=== PATIENT | female | born 1955 | race Hispanic/Latino ===

== ENCOUNTER 2019-04-30 17:09 | Observation (INO) | payer OTHER, SELFPAY ==
--- OUTSIDE RECORDS SUMMARY | 2019-04-30 17:13 | XMS REPORT | Continuity of Care Document ---
:1955 Author Organization [employer] Care Team Providers Name Role Phone [employer] Unavailable Unavailable Problems Problem Status Onset Classification Date Comments Source Date Reported OPEN Active [facility] COMMUNICATED 7 Medical FEMUR FX Center FEMUR FX Active [place] [id number] [facility] UNSP FRACTURE OF Active [facility] UNSP FEMUR, INIT Medical ENCNTR Center Medications Medication Details Route Status Patient Ordering Order Source Instructions Provider Date gabapentin 300 MG 300 mg=1 cap, Active [facility] Oral Capsule PO, Q8Hnow, # 90 2017 Medical cap, 0 Center Refill(s), Pharmacy: [facility] [id number] Ergocalciferol 50,000 Active [facility] [address] UNT Oral IntlUnit=1 cap, 2017 Medical Capsule PO, Q7D, # 5 Center cap, 0 Refill(s), Pharmacy: [facility] [id number] enoxaparin 30 30 mg=0.3 mL, Active [facility] mg/0.3 mL SUB-Q, [id number], 2017 Medical subcutaneous X 17 day, # 34 Center solution syr, 0 Refill(s), Pharmacy: [facility] [id number] Calcium Carbonate 1 tab, CHEW, Active [place] 1250 MG / BID-Meals, # 60 2017 Medical Cholecalciferol tab, 0 Center 400 UNT Chewable Refill(s), Tablet Pharmacy: [facility] [address] acetaminophen 325 650 mg=2 tab, Active [place] mg oral tablet PO, Q6H, 0 2017 Medical Refill(s) Center tramadol 100 mg=2 tab, Active [place] hydrochloride 50 PO, Q6Hnow, X 7 2017 Medical MG Oral Tablet day, # 56 tab, 0 Center Refill(s) methocarbamol 500 1,000 mg=2 tab, Active [place] mg oral tablet PO, Q8H, PRN 2017 Medical Muscle Spasms, X Center 5 day, # 30 tab, 0 Refill(s), Pharmacy: [facility] [id number] Metformin 500 mg=1 tab, Active [place] hydrochloride 500 PO, TID, # 90 2017 Medical MG Oral Tablet tab, 0 Center Refill(s), Pharmacy: [facility] [id number] insulin isophane 15 unit, SUB-Q, Active Steven (NPH) 100 BID, # 3 mL, 0 2017 Medical units/mL human Refill(s), Center recombinant Pharmacy: subcutaneous [facility] [id number] Nystatin 100 1 appl, Route: Inactive [place] UNT/MG Topical TOP, QSHIFT, 2017 Medical Powder Drug form: PWDR, Center Start date: 08/18/17 0:00:00 ENVIRONMENTAL SERVICES SUPERVISOR, Duration: 30 day, Stop date: 09/16/17 16:00:00 CSTNotes: (Same as:Mycostatin, Nilstat) For external use only. insulin, isophane 15 unit, 0.15 No Longer [place] mL, Route: Active 2016 Medical SUB-Q, Drug Center form: INJ, BID, Dosing Weight 104.545, kg, Start date: 08/17/17 9:00:00 ENVIRONMENTAL SERVICES SUPERVISOR, Duration: 30 day, Stop date: 09/15/17 17:00:00 CSTNotes: Roll in palms of hands gently; Do not shake vigorously. (Same as: Humulin N) Do not hold insulin without contacting prescriber WASTE: F/P - Black; E - Jeeves Trash Bin Stable for 28 days at room temperature Expires in days from Da te Metformin 500 mg, 1 tab, No Longer [place] hydrochloride 500 Route: PO, Drug Active 2016 Medical MG Oral Tablet form: TAB, TID, Center Dosing Weight 104.545, kg, Start date: 08/17/17 9:00:00 ENVIRONMENTAL SERVICES SUPERVISOR, Duration: 30 day, Stop date: 09/15/17 17:00:00 CSTNotes: (Same as: Glucophage) Take with meal Insulin Glargine 15 unit, Route: Inactive [place] 100 UNT/ML SUB-Q, ONCE, 2017 Medical Injectable Dosing Weight Center Solution 104.545, kg, Start date: 08/17/17 6:42:00 ENVIRONMENTAL SERVICES SUPERVISOR, Stop date: 08/17/17 6:42:00 ENVIRONMENTAL SERVICES SUPERVISOR Ergocalciferol 50,000 IntlUnit, No Longer [place] [address] UNT Oral 1 cap, Route: Active 2017 Medical Capsule PO, Drug form: Center CAP, Q7D, Dosing Weight 104.545, kg, Start date: 08/16/17 15:00:00 ENVIRONMENTAL SERVICES SUPERVISOR, Duration: 30 day, Stop date: 09/13/17 9:00:00 CSTNotes: (Same as: Vitamin D) "Do Not Crush" sennosides, RETIREMENT 17.2 mg, 2 tab, No Longer [place] Route: PO, Drug Active 2016 Medical Form: TAB, [place] Dosing Weight 106.818, kg, Bedtime, Start date: 08/15/17 21:00:00 ENVIRONMENTAL SERVICES SUPERVISOR, Duration: 30 day, Stop date: 09/13/17 21:00:00 CSTNotes: (Same as: Senokot) Insulin Glargine 5 unit, 0.05 mL, No Longer [place] 100 UNT/ML Route: SUB-Q, Active 2016 Medical Injectable Drug form: MONICA [place] Solution [Lantus] Bedtime, Dosing Weight 104.545, kg, Start date: 08/15/17 21:00:00 ENVIRONMENTAL SERVICES SUPERVISOR, Duration: 30 day, Stop date: 09/13/17 21:00:00 CSTNotes: Same as: Lantus) Do not hold insulin without contacting prescriber WASTE: F/P - Black; E - Municipal Trash Bin ondansetron Route: IV, Drug Inactive [place] (ANES) form: INJ, ONCE, 2016 Medical Stop date: [place] 08/15/17 17:47:00 ENVIRONMENTAL SERVICES SUPERVISOR phenylephrine Route: IV, Drug Inactive [facility] (ANES) form: INJ, ONCE, 2016 Medical Stop date: [place] 08/15/17 17:37:00 ENVIRONMENTAL SERVICES SUPERVISOR Naloxone 0.4 mg, Route: Inactive [place] IVP, Q2MIN, 2016 Medical Dosing Weight [place] 104.545, kg, PRN Narcotic Reversal, Start date: 08/15/17 17:27:00 ENVIRONMENTAL SERVICES SUPERVISOR, Duration: 8 doses or times, Stop date: Limited # of times Hydromorphone 0.5 mg, Route: Inactive [facility] IVP, Q5Min, 2017 Medical Dosing Weight Center 104.545, kg, PRN Pain Score 7-10, Start date: 08/15/17 17:27:00 ENVIRONMENTAL SERVICES SUPERVISOR, Duration: 4 doses or times, Stop date: Limited # of times Flumazenil 0.2 mg, Route: Inactive [facility] IVP, PRN, Dosing 2017 Medical Weight 104.545, Center kg, PRN Benzodiazepine Reversal, Initial dose, Start date: 08/15/17 17:27:00 ENVIRONMENTAL SERVICES SUPERVISOR, Duration: 30 day, Stop date: 09/14/17 17:26:00 ENVIRONMENTAL SERVICES SUPERVISOR Fentanyl 25 microgram, Inactive [facility] Route: IVP, 2017 Medical Q5Min, Dosing Center Weight 104.545, kg, PRN Pain Score 7-10, Priority: Routine, Start date: 08/15/17 17:27:00 ENVIRONMENTAL SERVICES SUPERVISOR, Duration: 2 doses or times, Stop date: Limited # of times Ondansetron 4 mg, Route: Inactive [facility] IVP, ONCE, 2017 Medical Dosing Weight Center 104.545, kg, PRN Nausea & Vomiting, Start date: 08/15/17 17:27:00 ENVIRONMENTAL SERVICES SUPERVISOR Acetaminophen 1,000 mg, Route: Inactive [facility] PO, Drug form: 2017 Medical TAB, ONCE, Center Dosing Weight 104.545, kg, PRN Pain Score 1-3, Start date: 08/15/17 17:27:00 ENVIRONMENTAL SERVICES SUPERVISOR, Duration: 1 doses or times, Stop date: Limited # of times fentaNYL (ANES) Route: IV, Drug Inactive [facility] form: INJ, ONCE, 2016 Medical Stop date: [place] 08/15/17 15:46:00 ENVIRONMENTAL SERVICES SUPERVISOR rocuronium (ANES) Route: IV, Drug Inactive [facility] form: INJ, ONCE, 2016 Medical Stop date: [place] 08/15/17 15:46:00 ENVIRONMENTAL SERVICES SUPERVISOR phenylephrine Route: IV, Drug Inactive [place] (ANES) form: INJ, ONCE, 2016 Medical Stop date: [place] 08/15/17 15:41:00 ENVIRONMENTAL SERVICES SUPERVISOR ePHEDrine (ANES) Route: IV, Drug Inactive [place] form: INJ, ONCE, 2016 Medical Stop date: [place] 08/15/17 15:36:00 ENVIRONMENTAL SERVICES SUPERVISOR phenylephrine Route: IV, Drug Inactive [place] (ANES) form: INJ, ONCE, 2016 Medical Stop date: [place] 08/15/17 15:21:00 ENVIRONMENTAL SERVICES SUPERVISOR ceFAZolin (ANES) Route: IV, Drug Inactive [place] form: INJ, ONCE, 2016 Medical Stop date: [place] 08/15/17 15:16:00 ENVIRONMENTAL SERVICES SUPERVISOR fentaNYL (ANES) Route: IV, Drug Inactive [place] form: INJ, ONCE, 2016 Medical Stop date: [place] 08/15/17 15:16:00 ENVIRONMENTAL SERVICES SUPERVISOR lidocaine (ANES) Route: IV, Drug Inactive [place] form: INJ, ONCE, 2016 Medical Stop date: [place] 08/15/17 15:16:00 ENVIRONMENTAL SERVICES SUPERVISOR propofol (ANES) Route: IV, Drug Inactive [place] form: INJ, ONCE, 2016 Medical Stop date: [place] 08/15/17 15:16:00 ENVIRONMENTAL SERVICES SUPERVISOR rocuronium (ANES) Route: IV, Drug Inactive [place] form: INJ, ONCE, 2016 Medical Stop date: [place] 08/15/17 15:16:00 ENVIRONMENTAL SERVICES SUPERVISOR LR 1000 mL INJ Route: IV, Total Inactive [place] (ANES) Volume: 1,000, 2016 Medical Start date: [place] 08/15/17 14:50:00 ENVIRONMENTAL SERVICES SUPERVISOR, Stop date: 08/15/17 15:50:00 ENVIRONMENTAL SERVICES SUPERVISOR midazolam (ANES) Route: IV, Drug Inactive [place] form: SOLN, 2017 Medical ONCE, Stop date: [place] 08/15/17 14:50:00 ENVIRONMENTAL SERVICES SUPERVISOR LR 1000 mL INJ Route: IV, Total Inactive [place] (ANES) Volume: 1,000, 2016 Medical Start date: [place] 08/15/17 14:17:00 ENVIRONMENTAL SERVICES SUPERVISOR, Stop date: 08/15/17 15:17:00 ENVIRONMENTAL SERVICES SUPERVISOR Enoxaparin 30 mg, 0.3 mL, No Longer [place] Route: SUB-Q, Active 2016 Medical Drug form: INJ, Center [id number], Dosing Weight 106.818, kg, Consider for obese patients, Start date: 08/15/17 13:00:00 ENVIRONMENTAL SERVICES SUPERVISOR, Duration: 30 day, Stop date: 09/14/17 1:00:00 CSTNotes: (Same as: Lovenox) Acetaminophen 650 mg, 2 tab, No Longer [place] Route: PO, Drug Active 2016 Medical form: TAB, Q6H, Center Dosing Weight 104.545, kg, Start date: 08/15/17 12:00:00 ENVIRONMENTAL SERVICES SUPERVISOR, Duration: 30 day, Stop date: 09/14/17 6:00:00 CSTNotes: Do not exceed 4 gm/day. (Same as: Tylenol) Docusate 100 mg, 1 cap, No Longer [place] Route: PO, Drug Active 2016 Medical form: CAP, BID, Center Dosing Weight 106.818, kg, Start date: 08/15/17 9:00:00 ENVIRONMENTAL SERVICES SUPERVISOR, Duration: 30 day, Stop date: 09/13/17 17:00:00 CSTNotes: (Same as: Colace) (Do Not Crush) Calcium Carbonate 1 tab, Route: No Longer [place] 1250 MG / CHEW, Drug Form: Active 2017 Medical Cholecalciferol CHEWTAB, Dosing Center 400 UNT Chewable Weight 106.818, Tablet kg, BID-Meals, Start date: 08/15/17 8:00:00 ENVIRONMENTAL SERVICES SUPERVISOR, Duration: 30 day, Stop date: 09/13/17 17:00:00 CSTNotes: (calcium carbonate-vit D 500mg-400unit chew TAB) Same as: Oscal 500+D sodium chloride 1,000 mL, Rate: No Longer [place] 0.9% 1000 ml INJ 75 ml/hr, Infuse Active 2016 Medical 1,000 mL over: 13.3 hr, Center Route: IV, Dosing Weight 106.818 kg, Total Volume: 1,000, Start date: 08/15/17 3:39:00 ENVIRONMENTAL SERVICES SUPERVISOR, Duration: 30 day, Stop date: 09/14/17 3:38:00 ENVIRONMENTAL SERVICES SUPERVISOR gabapentin 300 mg, 1 cap, No Longer [place] Route: PO, Drug Active 2016 Medical form: CAP, Center Q8Hnow, Dosing Weight 106.818, kg, Start date: 08/15/17 0:00:00 ENVIRONMENTAL SERVICES SUPERVISOR, Duration: 30 day, Stop date: 09/13/17 16:00:00 CSTNotes: (Same as: Neurontin) Tramadol 100 mg, 2 tab, No Longer [place] Route: PO, Drug Active 2016 Medical form: TAB, Center Q6Hnow, Dosing Weight 106.818, kg, Start date: 08/15/17 0:00:00 ENVIRONMENTAL SERVICES SUPERVISOR, Duration: 30 day, Stop date: 09/13/17 18:00:00 CSTNotes: Not to exceed 400mg/day. (Same As: Ultram) Acetaminophen 1,000 mg, 2 tab, Inactive [place] Route: PO, Drug 2016 Medical form: TAB, Center Q6Hnow, Dosing Weight 106.818, kg, Start date: 08/15/17 0:00:00 ENVIRONMENTAL SERVICES SUPERVISOR, Duration: 30 day, Stop date: 09/13/17 18:00:00 CSTNotes: Max acetaminophen 4000 mg/day (4 gm/day). (Same as: Tylenol Extra Strength) Enoxaparin 40 mg, 0.4 mL, Inactive [place] Route: SUB-Q, 2016 Medical Drug form: INJ, Center [id number], Dosing Weight 106.818, kg, Consider for obese patients, Start date: 08/15/17 0:00:00 ENVIRONMENTAL SERVICES SUPERVISOR, Duration: 30 day, Stop date: 09/13/17 12:00:00 CSTNotes: (Same as: Lovenox) Ancef + water for 2 gm, Route: No Longer [place] INJection, IVPB, ABXQ8H, Active 2016 Medical sterile 20 mL Dosing Weight Center 106.818, kg, Start date: 08/15/17 0:00:00 ENVIRONMENTAL SERVICES SUPERVISOR, Stop date: 08/19/17 19:00:00 ENVIRONMENTAL SERVICES SUPERVISOR, ABX Indication: Surgical ProphylaxisNotes : (Same As: Ancef, Kefzol) MEDICATION WASTE Product Size: 1000 mg Product Wasted: ___ mg Glucagon 1 mg, Route: IM, No Longer [place] Drug form: Active 2016 Medical PDR/INJ, PRN, Center Dosing Weight 106.818, kg, PRN Blood Glucose Results, Start date: 08/14/17 23:28:00 ENVIRONMENTAL SERVICES SUPERVISOR, Duration: 30 day, Stop date: 09/13/17 23:27:00 ENVIRONMENTAL SERVICES SUPERVISOR Dextrose 50% 25 gm, 50 mL, No Longer [place] Syringe Route: IVP, Drug Active 2016 Medical Form: INJ, Center Dosing Weight 106.818, kg, PRN, PRN Blood Glucose Results, Start date: 08/14/17 23:28:00 ENVIRONMENTAL SERVICES SUPERVISOR, Duration: 30 day, Stop date: 09/13/17 23:27:00 ENVIRONMENTAL SERVICES SUPERVISOR Insulin Lispro 5 unit, 0.05 mL, No Longer [place] Route: SUB-Q, Active 2016 Medical Drug form: SOLN, Center Sliding Scale, Dosing Weight 106.818, kg, PRN Blood Glucose Results, Start date: 08/14/17 23:28:00 ENVIRONMENTAL SERVICES SUPERVISOR, Duration: 30 day, Stop date: 09/13/17 23:27:00 CSTNotes: (Same as: Humalog ) Roll in palms of hands gently; Do not shake `vigorously. "Single Patient Use Only " (Restricted to patients requiring a dose > 60 units) WASTE: F/P - Black; E - Municipal Trash Bin Stable for 28 days at room temperature. Expires in days from [place] Methocarbamol 1,000 mg, 2 tab, No Longer [place] Route: PO, Drug Active 2016 Medical form: TAB, Q8H, Center Dosing Weight 106.818, kg, PRN Muscle Spasms, Start date: 08/14/17 23:26:00 ENVIRONMENTAL SERVICES SUPERVISOR, Duration: 30 day, Stop date: 09/13/17 23:25:00 CSTNotes: (Same as:Robaxin) Ondansetron 4 mg, 2 mL, No Longer [facility] Route: IVP, Drug Active 2016 Medical form: INJ, Q8H, Center Dosing Weight 106.818, kg, PRN Nausea & Vomiting, Start date: 08/14/17 23:26:00 ENVIRONMENTAL SERVICES SUPERVISOR, Duration: 30 day, Stop date: 09/13/17 23:25:00 CSTNotes: (Same as: Zofran) MEDICATION WASTE Product Size: 4 mg Product Wasted: ___ mg Oxycodone 10 mg, 2 tab, No Longer [place] Hydrochloride 5 Route: PO, Drug Active 2016 Medical MG Oral Tablet form: TAB, Q4H, Center Dosing Weight 106.818, kg, PRN Pain Score 7-10, Start date: 08/14/17 23:26:00 ENVIRONMENTAL SERVICES SUPERVISOR, Duration: 30 day, Stop date: 09/13/17 23:25:00 CSTNotes: (Same as: Roxicodone) Saline Flush 0.9% 10 ml, Route: No Longer [place] IVP, Drug Form: Active 2017 Medical INJ, Dosing Center Weight 106.818, kg, PRN, PRN Line Flush, Start date: 08/14/17 23:26:00 ENVIRONMENTAL SERVICES SUPERVISOR, Duration: 30 day, Stop date: 09/13/17 23:25:00 CSTNotes: (Same as: BD Posiflush) sodium chloride 1,000 mL, Rate: No Longer [place] 0.45% 1000 ml INJ 125 ml/hr, Active 2016 Medical 1,000 mL Infuse over: 8 Center hr, Route: IV, Dosing Weight 106.818 kg, Total Volume: 1,000, Start date: 08/14/17 23:26:00 ENVIRONMENTAL SERVICES SUPERVISOR, Duration: 30 day, Stop date: 09/13/17 23:25:00 ENVIRONMENTAL SERVICES SUPERVISOR Morphine 4 mg, Route: Inactive [place] IVP, ONCE, 2016 Medical Dosing Weight Center 106.818, kg, Priority: STAT, Start date: 08/14/17 21:34:00 ENVIRONMENTAL SERVICES SUPERVISOR, Stop date: 08/14/17 21:34:00 ENVIRONMENTAL SERVICES SUPERVISOR Ancef 2 gm, Route: Inactive [place] IVPB, ONCE, 2016 Medical Dosing Weight Center 106.818, kg, Priority: STAT, Start date: 08/14/17 19:20:00 ENVIRONMENTAL SERVICES SUPERVISOR, Duration: 1 doses or times, Stop date: 08/14/17 19:20:00 ENVIRONMENTAL SERVICES SUPERVISOR, ABX Indication: Open Wound Prophylaxis Morphine 4 mg, Route: Inactive [place] IVP, ONCE, 2016 Medical Dosing Weight Center 106.818, kg, Priority: STAT, Start date: 08/14/17 19:19:00 ENVIRONMENTAL SERVICES SUPERVISOR, Stop date: 08/14/17 19:19:00 ENVIRONMENTAL SERVICES SUPERVISOR Ondansetron 4 mg, Route: Inactive [place] IVP, Drug form: 2017 Medical INJ, ONCE, Center Dosing Weight 106.818, kg, Priority: STAT, Start date: 08/14/17 19:19:00 ENVIRONMENTAL SERVICES SUPERVISOR, Stop date: 08/14/17 19:19:00 ENVIRONMENTAL SERVICES SUPERVISOR Allergies, Adverse Reactions, Alerts Substance Category Reaction Severity Reaction Status Date Comments Source type Reported penicillins Assertion Drug Active [facility] Immunizations No Data Provided for This Section Results Order Name Results Value Reference Date Interpretation Comments Source Range CHEM PANEL eGFR 109 08/17 Result Comment: The Medical eGFR is Center calculated using the CKD-EPI formula. In most young, healthy individuals the eGFR will be >90 mL/min/1.73m2 . The eGFR declines with age. An eGFR of 60-89 may be normal in some populations, particularly the elderly, for whom the CKD-EPI formula has not been extensively validated. Use of the eGFR is not recommended in the following populations:< br/>
Jinny viduals with unstable creatinine concentration s, including patients and those with serious co-morbid conditions.<b r/>
Patie nts with extremes in muscle mass or diet.

The data above are obtained from the National Kidney Disease Education Program (NKDEP) which additionally recommends that when the eGFR is used in patients with extremes of body mass index for purposes of drug dosing, the eGFR should be multiplied by the estimated BMI. CHEM PANEL BUN 9 7 - 22 08/17 [facility] [address] [place] [address] CHEM PANEL Potassium 3.3 3.5 - 5.1 08/17 [facility] CHEM PANEL Glucose Lvl 275 70 - 99 08/[address] CHEM PANEL Sodium Lvl 138 135 - 145 08/[address] CHEM PANEL Creatinine 0.45 0.50 - 08/17 [facility] Lvl 1.40 [facility] CHEM PANEL Calcium Lvl 8.6 8.5 - 10.5 08/17 [facility]2016 [facility] CHEM PANEL CO2 30 24 - 32 08/[address] CHEM PANEL Chloride Lvl 102 95 - 109 08/[address] CHEM PANEL AGAP 9.3 10.0 - 08/17 [place] 20.0 [facility] HEMATOLOGY Basophils 0.6 0.0 - 1.0 08/[address] HEMATOLOGY Monocytes # 0.5 0.0 - 0.8 08/17 [facility] HEMATOLOGY Lymphocytes 1.9 1.0 - 5.5 11 [place] # /2017 [facility] HEMATOLOGY Eosinophils 0.4 0.0 - 0.5 08/17 [place] # /2017 [facility] HEMATOLOGY Segs-Bands # 5.4 1.5 - 8.1 08/17 [facility] HEMATOLOGY Eosinophils 4.5 0.0 - 4.0 08/17 [facility] HEMATOLOGY Segs 65.7 45.0 - 08/17 [place] 75.0 [facility] HEMATOLOGY Lymphocytes 23.1 20.0 - 08/17 [place] 40.0 [facility] HEMATOLOGY Monocytes 6.1 2.0 - 12.0 08/17 [facility] HEMATOLOGY RDW 14.3 11.5 - 08/17 [place] 14.5 [facility] HEMATOLOGY Platelet 191 133 - 450 08/17 [facility] HEMATOLOGY MPV 7.6 7.4 - 10.4 08/17 [facility] HEMATOLOGY MCHC 34.2 32.0 - 08/17 [place] 36.0 [facility] HEMATOLOGY MCH 28.5 27.0 - 08/17 [place] 31.0 [facility] HEMATOLOGY MCV 83.3 80.0 - 08/17 [place] 98.0 [facility] HEMATOLOGY Hct 22.3 36.0 - 08/17 [place] 48.0 [facility] HEMATOLOGY WBC 8.2 3.7 - 10.4 08/17 [facility] HEMATOLOGY Hgb 7.6 12.0 - 08/17 [place] 16.0 [facility] HEMATOLOGY RBC 2.68 4.20 - 08/17 [place] 5.40 [facility] CHEM PANEL eGFR 107 08/16 [facility] Comment: The Medical eGFR is Center calculated using the CKD-EPI formula. In most young, healthy individuals the eGFR will be >90 mL/min/1.73m2 . The eGFR declines with age. An eGFR of 60-89 may be normal in some populations, particularly the elderly, for whom the CKD-EPI formula has not been extensively validated. Use of the eGFR is not recommended in the following populations:< br/>
Jinny viduals with unstable creatinine concentration s, including patients and those with serious co-morbid conditions.<b r/>
Patie nts with extremes in muscle mass or diet.

The data above are obtained from the National Kidney Disease Education Program (NKDEP) which additionally recommends that when the eGFR is used in patients with extremes of body mass index for purposes of drug dosing, the eGFR should be multiplied by the estimated BMI. CHEM PANEL Globulin 3.5 2.7 - 4.2 08/16 [facility] CHEM PANEL A/G Ratio 0.7 0.7 - 1.6 08/[address] CHEM PANEL BUN 11 7 - 22 08/[address] CHEM PANEL Glucose Lvl 276 70 - 99 08/[address] CHEM PANEL Creatinine 0.47 0.50 - 08/16 [facility] Lvl 1.40 [facility] CHEM PANEL Alk Phos 110 39 - 136 08/[address] CHEM PANEL Bili Total 0.2 0.2 - 1.3 08/[address] CHEM PANEL ALT 34 0 - 65 08/[address] CHEM PANEL AST 23 0 - 37 08/[address] CHEM PANEL Albumin Lvl 2.4 3.5 - 5.0 08/[address] CHEM PANEL Total 5.9 6.4 - 8.4 08/16 [facility] Protein [facility] CHEM PANEL Calcium Lvl 8.1 8.5 - 10.5 08/[address] CHEM PANEL CO2 29 24 - 32 08/[address] CHEM PANEL Chloride Lvl 104 95 - 109 08/[address] CHEM PANEL Potassium 3.9 3.5 - 5.1 08/16 [facility] [place] [facility] CHEM PANEL Sodium Lvl 137 135 - 145 08/[address] CHEM PANEL B/C Ratio 23 6 - 25 08/[address] CHEM PANEL AGAP 7.9 10.0 - 08/16 [place] 20.0 [facility] HEMATOLOGY Eosinophils 0.2 0.0 - 0.5 08/16 [facility] # /2016 [facility] HEMATOLOGY Segs-Bands # 6.3 1.5 - 8.1 08/16 [facility] HEMATOLOGY Lymphocytes 1.3 1.0 - 5.5 11 [place] # /2016 [facility] HEMATOLOGY Monocytes # 0.6 0.0 - 0.8 08/16 [facility] HEMATOLOGY Eosinophils 2.2 0.0 - 4.0 08/16 [facility] HEMATOLOGY Basophils 0.5 0.0 - 1.0 08/16 [facility] HEMATOLOGY Segs 74.5 45.0 - 08/16 [place] 75.0 [facility] HEMATOLOGY Monocytes 7.0 2.0 - 12.0 08/16 [facility] HEMATOLOGY Lymphocytes 15.8 20.0 - 08/16 [place] 40.0 [facility] HEMATOLOGY Hgb 8.5 12.0 - 08/16 [place] 16.0 [facility] HEMATOLOGY RBC 2.99 4.20 - 08/16 [place] 5.40 [facility] HEMATOLOGY Platelet 199 133 - 450 08/16 [facility] HEMATOLOGY RDW 14.2 11.5 - 08/16 [place] 14.5 [facility] HEMATOLOGY MPV 7.3 7.4 - 10.4 08/16 [facility] HEMATOLOGY MCV 83.3 80.0 - 08/16 [place] 98.0 [facility] HEMATOLOGY Hct 24.9 36.0 - 08/16 [place] 48.0 [facility] HEMATOLOGY MCH 28.3 27.0 - 08/16 [place] 31.0 [facility] HEMATOLOGY MCHC 34.0 32.0 - 08/16 36.0 [facility] HEMATOLOGY WBC 8.5 3.7 - 10.4 08/16 [facility] CHEM PANEL Vitamin D, 10.3 30.0 - 08/15 [facility] 25-OH, Total 100.0 [facility] PARATHYROID PTH Intact 34.2 11.1 - 08/15 [facility] PROFILE 79.5 [facility] CHEM PANEL eGFR 108 08/15 [facility] Comment: The Medical eGFR is Center calculated using the CKD-EPI formula. In most young, healthy individuals the eGFR will be >90 mL/min/1.73m2 . The eGFR declines with age. An eGFR of 60-89 may be normal in some populations, particularly the elderly, for whom the CKD-EPI formula has not been extensively validated. Use of the eGFR is not recommended in the following populations:< br/>
Jinny viduals with unstable creatinine concentration s, including patients and those with serious co-morbid conditions.<b r/>
Patie nts with extremes in muscle mass or diet.

The data above are obtained from the National Kidney Disease Education Program (NKDEP) which additionally recommends that when the eGFR is used in patients with extremes of body mass index for purposes of drug dosing, the eGFR should be multiplied by the estimated BMI. CHEM PANEL Sodium Lvl 137 135 - 145 08/[address] CHEM PANEL Potassium 3.4 3.5 - 5.1 08/15 [facility] [place] [address] CHEM PANEL CO2 27 24 - 32 08/[address] CHEM PANEL Calcium Lvl 8.2 8.5 - 10.5 08/[address] CHEM PANEL Glucose Lvl 346 70 - 99 08/[address] CHEM PANEL Chloride Lvl 101 95 - 109 08/[address] CHEM PANEL BUN 13 7 - 22 08/[address] CHEM PANEL Creatinine 0.46 0.50 - 08/15 [facility] Lvl 1.40 [facility] CHEM PANEL AGAP 12.4 10.0 - 08/15 [place] 20.0 [facility] HEMATOLOGY Eosinophils 0.1 0.0 - 0.5 08/15 [facility] # /2017 [facility] HEMATOLOGY Monocytes # 0.7 0.0 - 0.8 08/[address] HEMATOLOGY Lymphocytes 2.3 1.0 - 5.5 08/15 [facility] # /[address] [place] [address] HEMATOLOGY Segs 61.1 45.0 - 08/15 [place] 75.0 [facility] HEMATOLOGY Segs-Bands # 4.9 1.5 - 8.1 08/[address] HEMATOLOGY Basophils 0.6 0.0 - 1.0 08/[address] HEMATOLOGY Eosinophils 1.0 0.0 - 4.0 08/[address] HEMATOLOGY Lymphocytes 29.1 20.0 - 08/15 [place] 40.0 [facility] HEMATOLOGY Monocytes 8.2 2.0 - 12.0 08/[address] HEMATOLOGY PT 15.8 12.0 - 08/15 14.7 /2016 [facility] HEMATOLOGY PTT 41.4 22.9 - 08/15 35.8 /2016 [facility] HEMATOLOGY INR 1.25 0.85 - 08/15 [place] 1.17 /2016 [facility] HEMATOLOGY MPV 7.3 7.4 - 10.4 08/15 [facility] HEMATOLOGY MCH 28.0 27.0 - 08/15 [place] 31.0 [facility] HEMATOLOGY MCHC 33.8 32.0 - 11 [place] 36.0 [facility] HEMATOLOGY Platelet 246 133 - 450 08/15 [facility] HEMATOLOGY MCV 83.1 80.0 - 08/15 [facility] 98.0 [facility] HEMATOLOGY RDW 14.2 11.5 - 08/15 [facility] 14.5 [facility] HEMATOLOGY WBC 8.0 3.7 - 10.4 08/15 [facility] HEMATOLOGY RBC 3.49 4.20 - 08/15 [facility] 5.40 [facility] HEMATOLOGY Hct 29.0 36.0 - 08/15 [place] 48.0 [facility] HEMATOLOGY Hgb 9.8 12.0 - 08/15 [place] 16.0 [facility] SPECIAL Hgb A1C 12.7 <=5.6 % 08/15 [facility] CHEMISTRY [facility] CHEM PANEL Lactic Acid 1.1 0.5 - 2.2 08/15 [facility] WB [facility] BLOOD BANK Antibody Negative 08/15 [facility] RESULTS Scrn (08/14/17 7:50 PM) [facility] BLOOD BANK ABO/Rh O NEG 08/15 [facility] RESULTS [facility] IMMUNOLOGY CDC HIV 4th Negative Negative 08/15 [facility] GEN *NA* /2016 [facility] (08/14/17 7:50 PM) [place] HEMATOLOGY G-value 15.9 5.0 - 11.6 08/15 [facility] HEMATOLOGY R-time Rapid 0.6 0.4 - 0.7 08/15 [facility] HEMATOLOGY [place] 0.5 08/15 [facility] HEMATOLOGY ACT (TEG) 105 86 - 118 08/15 [facility] HEMATOLOGY Max 76 52 - 71 08/15 [facility] HEMATOLOGY K-time Rapid 0.8 0.6 - 2.3 08/[address] HEMATOLOGY Angle Rapid 81 64 - 80 08/[address] HEMATOLOGY Estimated % 1.3 0.0 - 7.5 08/15 [facility] HEMATOLOGY Basophils # 0.1 0.0 - 0.2 08/[address] Pathology Reports No Data Provided for This Section Diagnostic Reports Report Value Date Source Femur series DX EXAM: XR LEFT FEMUR 2 VIEWS 08/15/2017 [facility] DATE: 08/15/2017 2:45 PM [facility] INDICATION: Fracture - post-op COMPARISON: X-ray knee 08/14/2017. TECHNIQUE: AP and lateral radiographs of the femur FINDINGS:Patient is status post intramedullary nail with interlocking screws for a comminuted fracture of the distal femoral diaphyses and metaphyses. Satisfactory alignment without evidence of periimplant fracture. Soft tissue swelling is present. IMPRESSION: Status post intramedullary nail with satisfactory alignment and no evidence of hardware complication. Chest 1view DX EXAM: XR CHEST 1 VIEW 08/15/2017 [facility] DATE: 08/15/2017 Center INDICATION: Respiratory distress - dyspnea . Comparison is made with yesterday FINDINGS: The heart is not enlarged. Costophrenic sulci are sharp without effusion. The lungs are clear. IMPRESSION: No significant interval change when compared to prior radiograph. Femur wo contrast CT EXAM: CT LEFT FEMUR WITHOUT CONTRAST, WITH 3-D 2016 [facility] DATE: 08/14/2017 10:08 PM [facility] INDICATION: - please include L knee and tibia COMPARISON: Radiographs from 08/14/2017. TECHNIQUE: Volumetric acquisition of the left femur without contrast. Axial, sagittal and coronal reconstructions. 3-D volume rendered images. IV contrast: None. DLP: 905 mGy-cm UT SECTION: ER FINDINGS: Comminuted left femoral distal metadiaphysis fracture is seen with posterior displacement of one and a half shaft width and medial displacement of about half shaft width, about 3.5 cm overriding at the primary fracture line. Also, the distal fragment appears mildly internally rotated. Significant comminution is noted at the distal metaphysis, with multiple displaced fracture fragments, largest anterom edially. There is intra-articular extension of the fracture into the knee joint, with a nondisplaced sagittal split fracture line extending into the lateral portion of the medial femoral condyle. A seco ndary fracture line extends into the posterior aspect of the lateral femoral condyle, but does not extend to the articular surface. Tricompartmental knee joint osteoarthrosis is present with exuberant overhanging osteophytes. Moderate hematoma is seen about the fracture site. Small knee joint hemarthrosis is present. In addition, there is moderate hematoma in the anterior compartment of the proximal to mid thigh. Fluid is al so seen along the hamstring muscles in the proximal to mid thigh. IMPRESSION: 1. Comminuted, displaced and overriding left femoral distal metadiaphysis fracture with intra-articular fracture extension as described above. Moderate surrounding hematoma. 2. Moderate hematoma in the anterior compartment of the proximal to mid thigh, and small to moderate amount of fluid along the hamstring muscles in the proximal to mid thigh. 3. Tricompartmental knee joint osteoarthrosis. Hip 2/3 views uni DX EXAM: XR LEFT HIP 3 VIEW AND AP PELVIS 08/14/2017 [facility] EXAM: XR LEFT FEMUR 2 VIEWS Center EXAM: XR LEFT KNEE 3 VIEWS DATE: 08/14/2017 7:18 PM ENVIRONMENTAL SERVICES SUPERVISOR INDICATION: - Femur fx COMPARISON: None. TECHNIQUE: AP pelvis, 2 view hip, 2 views of the femur, 3 views of the knee UT SECTION: ER FINDINGS: Pelvis/Hip: No acute fracture or malalignment is identified. Femur: Evaluation of the distal fibular fracture is limited by overlying splint artifact. Within this limitation there is a comminuted and displaced spiral fracture of the distal femoral metadiaphyseal region with greater than a shaft's width posterior and quadrant shaft's width medial displacement of the distal fragment along with overriding. Evaluation for intra-articular extension of fracture is severely limited because of overlying artifact. Within this limitation, no obvious intra-articular extension could be appreciated. There are moderate tricompartmental degenerative change s of the knee joint. Diffuse soft tissue swelling of the knee is present along with anterior soft tissue laceration with overlying bandage material. IMPRESSION: 1. Comminuted and displaced bilateral fractures of the distal femoral metadiaphyseal region with posterior medial displacement of the distal fragment along with overriding. Evaluation for intact as is s everely limited because of overlying artifact. Within this lesion, no obvious be appreciated. Diffuse knee soft tissue swelling with anterior knee soft tissue laceration and overlying bandage material. Knee 3 views DX EXAM: XR LEFT HIP 3 VIEW AND AP PELVIS 08/14/2017 [facility] EXAM: XR LEFT FEMUR 2 VIEWS Center EXAM: XR LEFT KNEE 3 VIEWS DATE: 08/14/2017 7:18 PM ENVIR[employer]MENTAL SERVICES SUPERVISOR INDICATION: - Femur fx COMPARISON: None. TECHNIQUE: AP pelvis, 2 view hip, 2 views of the femur, 3 views of the knee UT SECTION: ER FINDINGS: Pelvis/Hip: No acute fracture or malalignment is identified. Femur: Evaluation of the distal fibular fracture is limited by overlying splint artifact. Within this limitation there is a comminuted and displaced spiral fracture of the distal femoral metadiaphyseal region with greater than a shaft's width posterior and quadrant shaft's width medial displacement of the distal fragment along with overriding. Evaluation for intra-articular extension of fracture is severely limited because of overlying artifact. Within this limitation, no obvious intra-articular extension could be appreciated. There are moderate tricompartmental degenerative change s of the knee joint. Diffuse soft tissue swelling of the knee is present along with anterior soft tissue laceration with overlying bandage material. IMPRESSION: 1. Comminuted and displaced bilateral fractures of the distal femoral metadiaphyseal region with posterior medial displacement of the distal fragment along with overriding. Evaluation for intact as is s everely limited because of overlying artifact. Within this lesion, no obvious be appreciated. Diffuse knee soft tissue swelling with anterior knee soft tissue laceration and overlying bandage material. Chest 1view DX EXAM: XR CHEST 1 VIEW 08/14/2017 [facility] DATE: 08/14/2017 7:29 PM ENVIRONMENTAL SERVICES SUPERVISOR Center INDICATION: - fall COMPARISON: None. TECHNIQUE: AP chest UT SECTION: ER FINDINGS: Lines, tubes and hardware: None. Lungs and pleura: Low lung volumes with vascular crowding and scattered atelectasis. No focal consolidation. Heart and mediastinum: There is mild cardiomegaly. Note made of tortuous aorta. Bones: No acute bony abnormality is identified. IMPRESSION: Cardiomegaly and tortuous aorta Femur series DX EXAM: XR LEFT HIP 3 VIEW AND AP PELVIS 08/14/2017 [facility] EXAM: XR LEFT FEMUR 2 VIEWS Center EXAM: XR LEFT KNEE 3 VIEWS DATE: 08/14/2017 7:18 PM ENV[employer]MENTAL SERVICES SUPERVISOR INDICATION: - Femur fx COMPARISON: None. TECHNIQUE: AP pelvis, 2 view hip, 2 views of the femur, 3 views of the knee UT SECTION: ER FINDINGS: Pelvis/Hip: No acute fracture or malalignment is identified. Femur: Evaluation of the distal fibular fracture is limited by overlying splint artifact. Within this limitation there is a comminuted and displaced spiral fracture of the distal femoral metadiaphyseal region with greater than a shaft's width posterior and quadrant shaft's width medial displacement of the distal fragment along with overriding. Evaluation for intra-articular extension of fracture is severely limited because of overlying artifact. Within this limitation, no obvious intra-articular extension could be appreciated. There are moderate tricompartmental degenerative change s of the knee joint. Diffuse soft tissue swelling of the knee is present along with anterior soft tissue laceration with overlying bandage material. IMPRESSION: 1. Comminuted and displaced bilateral fractures of the distal femoral metadiaphyseal region with posterior medial displacement of the distal fragment along with overriding. Evaluation for intact as is s everely limited because of overlying artifact. Within this lesion, no obvious be appreciated. Diffuse knee soft tissue swelling with anterior knee soft tissue laceration and overlying bandage material. Consultation Notes No Data Provided for This Section Discharge Summaries No Data Provided for This Section History and Physicals No Data Provided for This Section Vital Signs Vital Sign Value Date Comments Source Heart Rate 84 08/18/2017 [facility] Temperature Oral (F) 98.0 F 08/18/2017 [facility] Systolic (mm Hg) 93 08/18/2017 [facility] Diastolic (mm Hg) 62 08/18/2017 [facility] Respitory Rate 18 08/18/2017 [facility] Temperature Oral (F) 98.5 F 08/18/2017 [facility] Systolic (mm Hg) 125 08/18/2017 [facility] Diastolic (mm Hg) 74 08/18/2017 [facility] Heart Rate 85 08/18/2017 [facility] Respitory Rate 20 08/18/2017 [facility] Systolic (mm Hg) 101 08/18/2017 [facility] Diastolic (mm Hg) 69 08/18/2017 [facility] Respitory Rate 18 08/18/2017 [facility] Temperature Oral (F) 97.8 F 08/18/2017 [facility] Heart Rate 80 08/18/2017 [facility] Weight 104.545 08/15/2017 [facility] Height 162.56 cm 08/15/2017 [facility] BMI Calculated 40.42 08/15/2017 [facility] Weight 106.818 08/15/2017 [facility] Encounters Location Location Encounter Encounter Reason Attending ADM DC Status Source Details Type Number For Provider Date Date Visit [facility] [id number] [place] 08/15 08/18 Steven Nunez /2016 [facility] Procedures Procedure Code Date Perfomer Comments Source Appendectomy [id number] 10/09/1967 [facility] Assessment and Plan Assessment and Plan Date Source Extracted from:Title: Clinical Document 08/18/2017 [facility] Author: Alejandrina Garcia MD Date: 08/18/17 Orthopaedic Trauma Progress Note Surgery: I&D, ORIF L intra articualr distal femur fracture, rIMN L femur Primary surgeon: Dr Zaidi POD: 3 Subjective: Got up to wheelchair yesterday, pain improving. NO longer complaining of brace rubbing with additional padding. No issues w urination, vital stable. Objective: Vitals Tmp(F) Pulse BP RR SpO2 FIO2 08/18 02:56 97.8 80 101/69 18 98 2.0L/m 08/17 23:14 98.1 81 101/66 18 98 2.0L/m 08/17 19:40 98.3 96 116/76 18 98 2.0L/m 08/17 16:54 97.8 82 107/70 18 99 2.0L/m 08/17 11:27 98.2 86 100/63 18 98 2.0L/m 24 Hr Tmax: 98.3F (36.83c) at 08/17 19:40 Vital Signs are the last 5 in the past 48 hours. Physical Exam: AOx3 LEFT LOWER EXTREMITY EXAM: INSPECTION and PALPATION: Dressing c/d/i. KI in place. Mild knee pain to palpation SENSORY: sensation is intact to light touch in: superficial peroneal nerve distribution (over dorsum of foot) deep peroneal nerve distribution (over first dorsal web space) MOTOR: + motor EHL (great toe dorsiflexion) + FHL (great toe plantar flexion) + TA (ankle dorsiflexion) + GSC (ankle plantar flexion) VASCULAR: 2+ dorsalis pedis pulse, toes warm and well-perfused Labs: Hg 7.6 Assessment/Plan: 61yo F POD 3 s/p L open femur I&D, ORIF intra articular extnsion, rIMN L femur - TTWB LLE - maintain knee immobilizer to LLE - maintain dressing, ortho to change - acute blood loss anemia, monitor hg, 7.6 yesterday - 48 hours post op antibiotics completed - prn pain control - continue PT - PREVENT CLOT RESEARCH LOVENOX 30mg BID for DVT prophylaxis - tight glycemic control for wound healing - Call with questions Alejandrina Garcia [place] [phone] c [phone] Extracted from:Title: [facility] Author: Veronika Rothman Date: 08/16/17 Attending: Alexandria Houser MD Service: Internal Medicine Code status: Full Code [Ordered] Reason for Admission: FEMUR FX Working DRG: Ungroupable Isolation: None Documented Consulting Physicians: Kenan Zaidi MD Office: Service: Orthopedic Surgery, Trauma CHIEF COMPLAINT: L open distal femur fragility fracture HISTORY OF PRESENT ILLNESS: Ms. Zamora is a 61 year old postmenopausal woman w/ no significant PMH who presented to the ED on 08/14/17. The history is obtained from both the patient and through chart review. She reportedly was at her son's house and was in the bathroom when she tripped over a cord on the ground and fell, hitting her L knee directly on the ground. She was taken to the ED in [facility], but then transferred to [facility] for HLOC. She was diagnosed w/ a L open distal femur fracture and underwent L IMN w/ Dr. Zaidi on 08/15/17. She reports today that she is feeling relatively well but was unable to get out of bed with PT this morning due to weakness in legs. Previous history of fracture: Denies Family history of fracture/osteoporosis: Denies Previous DEXA: Denies Prescription medication for osteoporosis/penia: Denies Supplements: Denies Physical Activity: Patient takes care of disabled son that she lives with. She denies any formal exercise but states she does a lot of walking, especially on the weekends when she does her shopping. Additional osteoporosis/fall risk factors: 1. Occasional cigarette smoker: May contribute to increased bone loss. 2. Glucose >300 on admission and HgbA1c 12.9: Diabetes, especially uncontrolled , can contribute to bone loss and fall risk. 3. Obesity: May contribute to increased fracture risk. REVIEW OF SYSTEMS: CONSTITUTIONAL: No weight loss, fever, chills, weakness or fatigue. HEENT: Eyes: No visual loss, blurred vision, double vision. Ears, Nose, Throat : No hearing loss, sneezing, congestion, no sore throat. SKIN: No rash or itching. CARDIOVASCULAR: No chest pain, chest pressure or chest discomfort. RESPIRATORY: No SOB. No coughing. GASTROINTESTINAL: No loss of appetite, nausea, vomiting or diarrhea. No abdominal pain or bloody stools. GENITOURINARY: No dysuria, hematuria, polyuria. NEUROLOGICAL: No headache, dizziness, syncope, paralysis, ataxia, numbness or tingling in the extremities. No change in bowel or bladder control. MUSCULOSKELETAL: See HPI. HEMATOLOGIC: No easy bleeding or bruising. LYMPHATICS: No enlarged nodes. PSYCHIATRIC: No history of depression or anxiety. ENDOCRINOLOGIC: No reports of sweating, cold or heat intolerance. No polyuria or polydipsia. PAST MEDICAL HISTORY: See HPI. FAMILY HISTORY: See HPI. Father: Type 2 diabetes mellitus Grandparent: Cancer of prostate SOCIAL HISTORY: See HPI. Alcohol Details: Past, Previous treatment: None. Alcohol use interferes with work or home: No. Drinks more than intended: No. Tobacco Details: Use: Current some day smoker. Type: Cigarettes. 1 per day. Ready to change: No. Household tobacco concerns: No. Tobacco smoke exposure: None. Did the Patient Smoke Cigarettes Anytime Duri ng the Last 365 Days? Yes. Cessation Counseling Provided? No. Substance Abuse Details: Use: None. Vitals Tmp(F) Pulse BP RR SpO2 FIO2 08/16 12:16 98.1 72 110/73 18 96 3.0L/m 08/16 08:10 98.3 92 95/63 18 94 3.0L/m 08/16 05:44 ---- 98 ----- -- 96 3.0L/m 08/16 05:04 98.3 104 92/51 18 97 4.0L/m 08/15 23:54 97.2 99 102/66 18 96 4.0L/m 24 Hr Tmax: 98.3F (36.83c) at 08/16 08:10 Vital Signs are the last 5 in the past 48 hours. Date Wt(kg) Wt(lb) Ht(cm) Ht(in) Method 08/15 104.55 230.00 Estimated 08/14 (initial) 106.82 235.00 Estimated 08/14 162.56 64.00 Stated PHYSICAL EXAM: CONSTITUTIONAL: 61 year old woman laying in bed in NAD. Appears of stated age and is obese. PSYCHOLOGICAL: Appropriate mood and affect. Alert and oriented. HEENT: Normocephalic, atraumatic. RESPIRATORY: Breathing is even and nonlabored on RA. MUSCULOSKELETAL: No gross deformities. No involuntary movements. KI to LLE. 24hr Labs 08/16 1223 POC Performing Locatio See Note Glucose POC 268 H 08/16 0645 POC Performing Locatio See Note Glucose POC 283 H 08/16 0637 Sodium Lvl 137 Potassium Lvl 3.9 Chloride Lvl 104 CO2 29 AGAP 7.9 L Glucose Lvl 276 H Creatinine Lvl 0.47 L BUN 11 B/C Ratio 23 Total Protein 5.9 L Albumin Lvl 2.4 L Globulin 3.5 A/G Ratio 0.7 Calcium Lvl 8.1 L ALT 34 AST 23 Alk Phos 110 Bili Total 0.2 eGFR 107 WBC 8.5 RBC 2.99 L Hgb 8.5 L Hct 24.9 L MCV 83.3 MCH 28.3 MCHC 34.0 RDW 14.2 Platelet 199 MPV 7.3 L Segs 74.5 Monocytes 7.0 Lymphocytes 15.8 L Eosinophils 2.2 Basophils 0.5 Segs-Bands # 6.3 Lymphocytes # 1.3 Monocytes # 0.6 Eosinophils # 0.2 08/15 2239 POC Performing Locatio See Note Glucose POC 287 H 08/15 1805 POC Performing Locatio See Note Glucose POC 200 H 08/15 1457 POC V Source JEANINE POC V Temp 37.0 POC V pH 7.34 POC V PCO2 55 H POC V PO2 42 POC V HCO3 30 H POC V BE 3 H POC V O2 Sat 74.0 H POC V Hct 27.0 L POC V Ion Ca 1.17 POC V K 3.1 L POC V Na 135 POC V LA 2.4 H POC V Glu 153 H POC Performing Locatio See Note 08/15 1330 PTH Intact 34.2 Vitamin D, 25-OH, Tota 10.3 L IMAGING: Radiology Report EXAM: CT LEFT FEMUR WITHOUT CONTRAST, WITH 3-D DATE: 08/14/2017 10:08 PM ENVIRONMENTAL SERVICES SUPERVISOR IMPRESSION: 1. Comminuted, displaced and overriding left femoral distal metadiaphysis fracture with intra-articular fracture extension as described above. Moderate surrounding hematoma. 2. Moderate hematoma in the anterior compartment of the proximal to mid thigh , and small to moderate amount of fluid along the hamstring muscles in the proximal to mid thigh. 3. Tricompartmental knee joint osteoarthrosis. Radiology Report EXAM: XR LEFT FEMUR 2 VIEWS DATE: 08/15/2017 2:45 PM ENVIRONMENTAL SERVICES SUPERVISOR FINDINGS:Patient is status post intramedullary nail with interlocking screws for a comminuted fracture of the distal femoral diaphyses and metaphyses. Satisfactory alignment without evidence of periimplant fracture. Soft tissue swelling is present. IMPRESSION: Status post intramedullary nail with satisfactory alignment and no evidence of hardware complication. ASSESSMENT: 1. Acute L open distal femur fragility fracture, s/p L IMN, POD #1 2. Clinical osteoporosis 3. Vitamin D deficiency 4. Hypocalcemia: Likely secondary due to recent fracture/surgery. PLAN: 1. Labs: No additional labs needed at this time. 2. Medication: Continue calcium carbonate 500mg/vitamin D3 400IU BID and ergocalciferol 50,000IU weekly added. 3. Pain control: Per primary. 4. Antibiotics: Per primary. 5. PT/OT: As ordered. Weightbearing status per ortho. 6. Education: Counseled patient on etiology of bone disease and importance of fall prevention, bone health, and appropriate treatment options. Educational handout given. 7. Discharge: Per primary. [facility] ([phone]) as outpatient 3-4 weeks after discharge. Patient will need the following as outpatient for additional osteoporosis workup: 1. DXA 2. Labs: BSAP, P1NP, NTx, magnesium, phosphorus, TSH, T4 3. Repeat vitamin D level and ionized calcium in 3 months. Please call [phone] with any questions or concerns. Veronika Rothman PA-C Fragility Fracture Insert Operator Extracted from:Title: Clinical Document Author: Alejandrina Garcia MD Date: 08/15/17 Orthopaedic Trauma Brief Op Note Pre op dx: Left open intra articular distal femur fracture Post op dx: Same Procedure: Irrigation and debridement of lef topen distal femur fracture, open reduction internal fixation intra articular distal femur fracture, retrograde IMN left open femur Surgeons: Dr Dyan MD Assistants: Alejandrina Garcia MD fellow Anesthesia: GETA Fluids: see anesthesia records EBL: 300cc UOP: none Findings: severe end stage osteoarthritis, intra articular split with no step off, severe comminution of fracture, no gross contamination Implants: Roberta retrograde femoral nail [id number], 6 5.0mm locking screws, 4 distal 2 proximal. Synthes 6.5mm cannulated fully threaded screws x2 Complications: none Plan: - PACU --> 6jones - Weight bearing status: TTWB LLE, knee immobilizer at all times - Antibiotics: Ancef per scip protocol 48 hours post op - Pain control: multimodal, prn - Dressings: keep c/d/i ortho will do first change - DVT PPx: lovenox, TEDS/SCD - Diet per primary - Bowel Regimen: softeners - PT: consulted - Dispo: will continue to follow in house Extracted from:Title: History and Physical Author: Paul Day MD Date: 08/14/17 61-year-old femaletripped and fell, sustained leftfemur open fracture. Patient will undergo orthopedic surgery tomorrow. 1.Left Femur Open fracture Left femur open fracturestatus postmechanical fall. Patient was splintedpendingsurgical reduction Nonweightbearing toleft lower extremity Start Ancef for perioperativeprophylaxis PostopPT OT Ordered: Ancef, 1 gm, Route: IVPB, Drug form: PDR/INJ, ABXQ8H, Dosing Weight 106.818, kg , Start date: 08/15/17 0:00:00 ENVIRONMENTAL SERVICES SUPERVISOR, Duration: 5 day, Stop date: 08/19/17 16:00: 00 ENVIRONMENTAL SERVICES SUPERVISOR, ABX Indication: Surgical Prophylaxis Admit/Condition, 08/14/17 23:26:00 ENVIRONMENTAL SERVICES SUPERVISOR, Status: Inpatient, Acute, Expected LOS : 3 or Greater Midnights, Brandon Nunez MD, Admit Review/Approve Yes, Isolation: No Isolation/Standard Precautions Hgb A1c, 08/14/17 23:43:00 ENVIRONMENTAL SERVICES SUPERVISOR, Routine, ONCE, 1, day 2.Accidental fall Patient has a regular gait andgood exercise toleranceprior to the incident. Will needPT OT evaluationafter surgery Ordered: Ancef, 1 gm, Route: IVPB, Drug form: PDR/INJ, ABXQ8H, Dosing Weight 106.818, kg , Start date: 08/15/17 0:00:00 ENVIRONMENTAL SERVICES SUPERVISOR, Duration: 5 day, Stop date: 08/19/17 16:00: 00 ENVIRONMENTAL SERVICES SUPERVISOR, ABX Indication: Surgical Prophylaxis Admit/Condition, 08/14/17 23:26:00 ENVIRONMENTAL SERVICES SUPERVISOR, Status: Inpatient, Acute, Expected LOS : 3 or Greater Midnights, Brandon Nunez MD, Admit Review/Approve Yes, Isolation: No Isolation/Standard Precautions Hgb A1c, 08/14/17 23:43:00 ENVIRONMENTAL SERVICES SUPERVISOR, Routine, ONCE, 1, day 3.Acute pain due to trauma Start acetaminophenand tramadol with as neededNorco Aggressive bowel regimen Ordered: Ancef, 1 gm, Route: IVPB, Drug form: PDR/INJ, ABXQ8H, Dosing Weight 106.818, kg , Start date: 08/15/17 0:00:00 ENVIRONMENTAL SERVICES SUPERVISOR, Duration: 5 day, Stop date: 08/19/17 16:00: 00 ENVIRONMENTAL SERVICES SUPERVISOR, ABX Indication: Surgical Prophylaxis Admit/Condition, 08/14/17 23:26:00 ENVIRONMENTAL SERVICES SUPERVISOR, Status: Inpatient, Acute, Expected LOS : 3 or Greater Midnights, Brandon Nunez MD, Admit Review/Approve Yes, Isolation: No Isolation/Standard Precautions Hgb A1c, 08/14/17 23:43:00 ENVIRONMENTAL SERVICES SUPERVISOR, Routine, ONCE, 1, day 4.Osteoarthritis Continue vitamin D and calcium 5.hyperglycemia BG is376. However patient denies history of diabetes. I ordered A1c Start lispro SS Ordered: Ancef, 1 gm, Route: IVPB, Drug form: PDR/INJ, ABXQ8H, Dosing Weight 106.818, kg , Start date: 08/15/17 0:00:00 ENVIRONMENTAL SERVICES SUPERVISOR, Duration: 5 day, Stop date: 08/19/17 16:00: 00 ENVIRONMENTAL SERVICES SUPERVISOR, ABX Indication: Surgical Prophylaxis Admit/Condition, 08/14/17 23:26:00 ENVIRONMENTAL SERVICES SUPERVISOR, Status: Inpatient, Acute, Expected LOS : 3 or Greater Midnights, Brandon Nunez MD, Admit MD Review/Approve Yes, Isolation: No Isolation/Standard Precautions Hgb A1c, 08/14/17 23:43:00 ENVIRONMENTAL SERVICES SUPERVISOR, Routine, ONCE, 1, day 6.Encounter for preoperative assessment for cardiac surgery Patient will undergo surgical reduction for left femur open fx, consider intermediate surgical risk. She had a remote appendectomy without surgical complication. Patient denies dyspnea, chest pain, abdo alyssa pain nausea vomiting. NRRR, S1S2, lung is clear, no neurological deficit. She has good ET, walk 1 -2 miles, and 2/3 flights of stairs. MET>4. no EKG in chart, I order EKG pending read. Alth ough based on her MET No additional cardiac workup is expected. She denies any stress test or c angiogram. Her RCRI is <1%. Patient has low cardiac risk for the intermediate risk surgery. Hyperglycemia was noted. I order A1c as patient denies DM history. I order Lispro SSI for now. If DM confirms, long acting insulin is expected to cover BG. 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 expect3-4 [place]. Plan of Care No Data Provided for This Section Social History Social History Date Source Social History TypeResponse 08/15/2017 [facility] Substance Abuse Use: None. Alcohol Past, Previous treatment: None. Alcohol use interferes with work or home: No. Drinks more than intended: No. Smoking Status Current some day smoker; Type: Cigarettes; Ready to change: No; Concerns about tobacco use in household: No; Exposure to Tobacco Smoke None; Cigarette Smoking Last 365 Days Yes; Reg Smoking Cessation Counseling No; Tobacco use per day: 1; Family History No Data Provided for This Section Advance Directives No Data Provided for This Section Functional Status No Data Provided for This Section
--- OUTSIDE RECORDS SUMMARY | 2019-04-30 17:13 | XMS REPORT ---
:1955 Author Organization [facility] Address [address] [place] [address] Care Team Providers Name Role Phone Unavailable Unavailable Unavailable Problems This patient has no known problems. Allergies, Adverse Reactions, Alerts This patient has no known allergies or adverse reactions. Medications This patient has no known medications.
--- OUTSIDE RECORDS SUMMARY | 2019-04-30 17:13 | XMS REPORT | Summary of Care ---
:1955 Author Name Shari Zuniga Address Unavailable Unavailable , Care Team Providers Name Role Phone MOE SORTO Unavailable Unavailable Shari Zuniga Unavailable Unavailable Functional Status Name Dates Details Functional status health issues are not documented Status: Name Dates Details Cognitive status health issues are not documented Status: Problems Name Dates Details Open displaced supracondylar fracture of distal end of left femur with intracondylar extension (821.33, G62.322M) Status: Active Medications Name Dates Details TraMADol HCl - 50 MG Oral Tablet 1 tablet every 6 hrs prn pain Quantity: 40 Refills: 0 MEO SORTO Start : 26-Sep-2017 Active Methocarbamol 500 MG Oral Tablet 1 tab by mouth twice a day Quantity: 30 Refills: 0 MOE SORTO Start : 26-Sep-2017 Active Allergies and Adverse Reactions Name Dates Details Allergy history not documented Status: Procedures Procedure Dates Details Procedures not documented Immunization Name Dates Details Immunizations not documented Social History Name Dates Details Unknown if ever smoked Vital Signs Date Test Result Details No Known Vitals to report Results Date Description Value Details [id number] [U] XRAY FEMUR 2 VWS LEFT [id number] XR FEMUR 2 VWS LEFT Images acquired, not reported on this accession number. Plan of Care Name Dates Details Planned Observations Planned Goals not documented Instructions Name Dates Details Instructions not documented Encounters Appointment; MOE MCKEON PA On: 28-Aug-2017 11:45 Encounter Diagnosis: Problem not documented Appointment; MOE MCKEON PA On: 26-Sep-2017 8:45 Encounter Diagnosis: Problem not documented
--- OUTSIDE RECORDS SUMMARY | 2019-04-30 17:13 | XMS REPORT | Summary of Care ---
:1955 Author Organization [facility] Address [address] [place] [id number] Encounter HQ Encntr_иван(FIN) [id number] Date(s): 08/14/17 - 08/18/[address] Professional Services provided by [facility] [place] [address]- Discharge Disposition: Home or Self Care Attending Physician: Alexandria Houser MD Admitting Physician: Brandon Nunez MD Vital Signs Most recent to oldest 1 2 3 [Reference Range]: Height 162.56 cm (08/14/17 7:05 PM) Temperature Oral [96.4-99.1 98.0 DegF 98.5 DegF 97.8 DegF DegF] (08/18/17 11:26 AM) (08/18/17 7:24 AM) (08/18/17 2:56 AM) Blood Pressure 93/62 mmHg 125/74 mmHg 101/69 mmHg [90-140/60-90 mmHg] (08/18/17 11:26 AM) (08/18/17 7:24 AM) (08/18/17 2:56 AM ) Respiratory Rate [14-20 18 BRMIN 20 BRMIN 18 BRMIN BRMIN] (08/18/17 11:26 AM) (08/18/17 7:24 AM) (08/18/17 2:56 AM) Peripheral Pulse Rate 84 bpm 85 bpm 80 bpm [60-100 bpm] (08/18/17 11:26 AM) (08/18/17 7:24 AM) (08/18/17 2:56 AM) Weight 104.545 kg 106.818 kg (08/15/17 6:28 AM) (08/14/17 7:05 PM) Body Mass Index 40.42 m2 (08/14/17 7:05 PM) Problem List No data available for this section Allergies, Adverse Reactions, Alerts Substance Reaction Severity Status penicillins Active Medications acetaminophen 1,000 mg, 2 tab, Route: PO, Drug form: TAB, Q6Hnow, Dosing Weight 106.818, kg, Start date: 08/15/17 0:00:00 INTAKE MAN, Duration: 30 day, Stop date: 09/13/17 18:00: 00 INTAKE MAN Notes: Max acetaminophen 4000 mg/day (4 gm/day). (Same as: Tylenol Extra Strength) Start Date: 08/15/17 Stop Date: 08/15/17 Status: Discontinuedacetaminophen 650 mg, 2 tab, Route: PO, Drug form: TAB, Q6H, Dosing Weight 104.545, kg, Start date: 08/15/17 12:00:00 INTAKE MAN, Duration: 30 day, Stop date: 09/14/17 6:00:00 INTAKE MAN Notes: Do not exceed 4 gm/day. (Same as: Tylenol) Start Date: 08/15/17 Stop Date: 08/18/17 Status: Discontinuedacetaminophen 325 mg oral tablet 650 mg=2 tab, PO, Q6H, 0 Refill(s) Start Date: 08/18/17 Status: OrderedAncef 2 gm, Route: IVPB, ONCE, Dosing Weight 106.818, kg, Priority: STAT, Start date: 08/14/17 19:20:00 INTAKE MAN, Duration: 1 doses or times, Stop date: 08/14/17 19:20:00 INTAKE MAN, ABX Indication: Open Wound Prophylaxis Start Date: 08/14/17 Stop Date: 08/14/17 Status: CompletedAncef + water for INJection, sterile 20 mL 2 gm, Route: IVPB, [id number], Dosing Weight 106.818, kg, Start date: 08/15/17 0:00: 00 INTAKE MAN, Stop date: 08/19/17 19:00:00 INTAKE MAN, ABX Indication: Surgical Prophylaxis Notes: (Same As: Jose Bolivar) MEDICATION WASTE Product Size: 1000 mgProduct Wasted: ___ mg Start Date: 08/15/17 Stop Date: 08/17/17 Status: DiscontinuedANES acetaminophen 1,000 mg, Route: PO, Drug form: TAB, ONCE, Dosing Weight 104.545, kg, PRN Pain Score 1-3, Start date: 08/15/17 17:27:00 INTAKE MAN, Duration: 1 doses or times, Stop date: Limited # of times Start Date: 08/15/17 Stop Date: 08/15/17 Status: DiscontinuedANES fentaNYL 25 microgram, Route: IVP, Q5Min, Dosing Weight 104.545, kg, PRN Pain Score 7-10 , Priority: Routine, Start date: 08/15/17 17:27:00 INTAKE MAN, Duration: 2 doses or times, Stop date: Limited # of times Start Date: 08/15/17 Stop Date: 08/15/17 Status: DiscontinuedANES flumazenil 0.2 mg, Route: IVP, PRN, Dosing Weight 104.545, kg, PRN Benzodiazepine Reversal , Initial dose, Startdate: 08/15/17 17:27:00 INTAKE MAN, Duration: 30 day, Stop date: 09/14/17 17:26:00 INTAKE MAN Start Date: 08/15/17 Stop Date: 08/15/17 Status: DiscontinuedANES HYDROmorphone 0.5 mg, Route: IVP, Q5Min, Dosing Weight 104.545, kg, PRN Pain Score 7-10, Start date: 08/15/17 17:27:00 INTAKE MAN, Duration: 4 doses or times, Stop date: Limited # of times Start Date: 08/15/17 Stop Date: 08/15/17 Status: DiscontinuedANES naloxone 0.4 mg, Route: IVP, Q2MIN, Dosing Weight 104.545, kg, PRN Narcotic Reversal, Start date: 08/15/17 17:27:00 INTAKE MAN, Duration: 8 doses or times, Stop date: Limited # of times Start Date: 08/15/17 Stop Date: 08/15/17 Status: DiscontinuedANES ondansetron 4 mg, Route: IVP, ONCE, Dosing Weight 104.545, kg, PRN Nausea & Vomiting, Start date: 08/15/17 17:27:00 INTAKE MAN Start Date: 08/15/17 Stop Date: 08/15/17 Status: Discontinuedcalcium-vitamin D 500 mg-400 intl units oral tablet, chewable 1 tab, CHEW, BID-Meals, # 60 tab, 0 Refill(s), Pharmacy: [facility] [id number] Start Date: 08/18/17 Stop Date: 09/17/17 Status: Orderedcalcium-vitamin D 500 mg-400 intl units oral tablet, chewable 1 tab, Route: CHEW, Drug Form: CHEWTAB, Dosing Weight 106.818, kg, BID-Meals, Start date: 08/15/17 8:00:00 INTAKE MAN, Duration: 30 day, Stop date: 09/13/17 17:00: 00 INTAKE MAN Notes: (calcium carbonate-vit D 500mg-400unit chew TAB) Same as: Oscal 500+D Start Date: 08/15/17 Stop Date: 08/18/17 Status: DiscontinuedceFAZolin (ANES) Route: IV, Drug form: INJ, ONCE, Stop date: 08/15/17 15:16:00 INTAKE MAN Start Date: 08/15/17 Stop Date: 08/15/17 Status: CompletedDextrose 50% Syringe 25 gm, 50 mL, Route: IVP, Drug Form: INJ, Dosing Weight 106.818, kg, PRN, PRN Blood Glucose Results,Start date: 08/14/17 23:28:00 INTAKE MAN, Duration: 30 day, Stop date: 09/13/17 23:27:00 INTAKE MAN Start Date: 08/14/17 Stop Date: 08/18/17 Status: DiscontinuedDextrose 50% Syringe 12.5 gm, 25 mL, Route: IVP, Drug Form: INJ, Dosing Weight 106.818, kg, PRN, PRN Blood Glucose Results, Start date: 08/14/17 23:28:00 INTAKE MAN, Duration: 30 day, Stop date: 09/13/17 23:27:00 INTAKE MAN Start Date: 08/14/17 Stop Date: 08/18/17 Status: Discontinueddocusate 100 mg, 1 cap, Route: PO, Drug form: CAP, BID, Dosing Weight 106.818, kg, Start date: 08/15/17 9:00:00 INTAKE MAN, Duration: 30 day, Stop date: 09/13/17 17:00:00 INTAKE MAN Notes: (Same as: Colace) (Do Not Crush) Start Date: 08/15/17 Stop Date: 08/18/17 Status: Discontinuedenoxaparin 30 mg, 0.3 mL, Route: SUB-Q, Drug form: INJ, [id number], Dosing Weight 106.818, kg , Consider for obesepatients, Start date: 08/15/17 13:00:00 INTAKE MAN, Duration: 30 day, Stop date: 09/14/17 1:00:00 INTAKE MAN Notes: (Same as: Lovenox) Start Date: 08/15/17 Stop Date: 08/18/17 Status: Discontinuedenoxaparin 40 mg, 0.4 mL, Route: SUB-Q, Drug form: INJ, [id number], Dosing Weight 106.818, kg , Consider for obesepatients, Start date: 08/15/17 0:00:00 INTAKE MAN, Duration: 30 day , Stop date: 09/13/17 12:00:00 INTAKE MAN Notes: (Same as: Lovenox) Start Date: 08/15/17 Stop Date: 08/15/17 Status: Discontinuedenoxaparin 30 mg/0.3 mL subcutaneous solution 30 mg=0.3 mL, SUB-Q, [id number], X 17 day, # 34 syr, 0 Refill(s), Pharmacy: [facility] [id number] Start Date: 08/18/17 Stop Date: 09/04/17 Status: OrderedePHEDrine (ANES) Route: IV, Drug form: INJ, ONCE, Stop date: 08/15/17 15:36:00 INTAKE MAN Start Date: 08/15/17 Stop Date: 08/15/17 Status: Completedergocalciferol 50,000 intl units oral capsule 50,000 IntlUnit=1 cap, PO, Q7D, # 5 cap, 0 Refill(s), Pharmacy: [facility] [id number] Start Date: 08/18/17 Stop Date: 09/17/17 Status: Orderedergocalciferol 50,000 intl units oral capsule 50,000 IntlUnit, 1 cap, Route: PO, Drug form: CAP, Q7D, Dosing Weight 104.545, kg, Start date: 08/16/17 15:00:00 INTAKE MAN, Duration: 30 day, Stop date: 09/13/17 9: 00:00 INTAKE MAN Notes: (Same as: Vitamin D) "Do Not Crush" Start Date: 08/16/17 Stop Date: 08/18/17 Status: DiscontinuedfentaNYL (ANES) Route: IV, Drug form: INJ, ONCE, Stop date: 08/15/17 15:16:00 INTAKE MAN Start Date: 08/15/17 Stop Date: 08/15/17 Status: CompletedfentaNYL (ANES) Route: IV, Drug form: INJ, ONCE, Stop date: 08/15/17 15:46:00 INTAKE MAN Start Date: 08/15/17 Stop Date: 08/15/17 Status: Completedgabapentin 300 mg, 1 cap, Route: PO, Drug form: CAP, Q8Hnow, Dosing Weight 106.818, kg, Start date: 08/15/17 0:00:00 INTAKE MAN, Duration: 30 day, Stop date: 09/13/17 16:00: 00 INTAKE MAN Notes: (Same as: Neurontin) Start Date: 08/15/17 Stop Date: 08/18/17 Status: Discontinuedgabapentin 300 mg oral capsule 300 mg=1 cap, PO, Q8Hnow, # 90 cap, 0 Refill(s), Pharmacy: [facility] [id number] Start Date: 08/18/17 Stop Date: 09/17/17 Status: Orderedglucagon 1 mg, Route: IM, Drug form: PDR/INJ, PRN, Dosing Weight 106.818, kg, PRN Blood Glucose Results, Start date: 08/14/17 23:28:00 INTAKE MAN, Duration: 30 day, Stop date : 09/13/17 23:27:00 INTAKE MAN Start Date: 08/14/17 Stop Date: 08/18/17 Status: Discontinuedinsulin glargine 100 units/mL subcutaneous solution 15 unit, Route: SUB-Q, ONCE, Dosing Weight 104.545, kg, Start date: 08/17/17 6: 42:00 INTAKE MAN, Stop date:08/17/17 6:42:00 INTAKE MAN Start Date: 08/17/17 Stop Date: 08/17/17 Status: Discontinuedinsulin isophane (NPH) 100 units/mL human recombinant subcutaneous suspension 15 unit, SUB-Q, BID, # 3 mL, 0 Refill(s), Pharmacy: [facility] [id number] Start Date: 08/18/17 Stop Date: 09/17/17 Status: Orderedinsulin isophane-NPH 15 unit, 0.15 mL, Route: SUB-Q, Drug form: INJ, BID, Dosing Weight 104.545, kg, Start date: 179:00:00 INTAKE MAN, Duration: 30 day, Stop date: 09/15/17 17:00:00 INTAKE MAN Notes: Roll in palms of hands gently; Do not shake vigorously. (Same as: Humulin N)Do not hold insulin without contacting prescriberWASTE: F/P - Black; E - Municipal Trash Bin Stable for 28 days at room temperatureExpires in ____ _ days from Date Start Date: 08/17/17 Stop Date: 08/18/17 Status: Discontinuedinsulin lispro 5 unit, 0.05 mL, Route: SUB-Q, Drug form: SOLN, Sliding Scale, Dosing Weight 106.818, kg, PRN Blood Glucose Results, Start date: 08/14/17 23:28:00 INTAKE MAN, Duration: 30 day, Stop date: 09/13/17 23:27:00 INTAKE MAN Notes: (Same as: Humalog ) Roll in palms of hands gently; Do not shake ` vigorously. "Single PatientUse Only " (Restricted to patients requiring a dose > 60 units)WASTE: F/P - Black; E - Municipal Trash Bin Stable for 28 days at room temperature.Expires in days from Date Start Date: 08/14/17 Stop Date: 08/18/17 Status: Discontinuedinsulin lispro 4 unit, 0.04 mL, Route: SUB-Q, Drug form: SOLN, Sliding Scale, Dosing Weight 106.818, kg, PRN Blood Glucose Results, Start date: 08/14/17 23:28:00 INTAKE MAN, Duration: 30 day, Stop date: 09/13/17 23:27:00 INTAKE MAN Notes: (Same as: Humalog ) Roll in palms of hands gently; Do not shake ` vigorously. "Single PatientUse Only " (Restricted to patients requiring a dose > 60 units)WASTE: F/P - Black; E - Municipal Trash Bin Stable for 28 days at room temperature.Expires in days from Date Start Date: 08/14/17 Stop Date: 08/18/17 Status: Discontinuedinsulin lispro 1 unit, 0.01 mL, Route: SUB-Q, Drug form: SOLN, Sliding Scale, Dosing Weight 106.818, kg, PRN Blood Glucose Results, Start date: 08/14/17 23:28:00 INTAKE MAN, Duration: 30 day, Stop date: 09/13/17 23:27:00 INTAKE MAN Notes: (Same as: Humalog ) Roll in palms of hands gently; Do not shake ` vigorously. "Single PatientUse Only " (Restricted to patients requiring a dose > 60 units)WASTE: F/P - Black; E - Municipal Trash Bin Stable for 28 days at room temperature.Expires in days from Date Start Date: 08/14/17 Stop Date: 08/18/17 Status: Discontinuedinsulin lispro 3 unit, 0.03 mL, Route: SUB-Q, Drug form: SOLN, Sliding Scale, Dosing Weight 106.818, kg, PRN Blood Glucose Results, Start date: 08/14/17 23:28:00 INTAKE MAN, Duration: 30 day, Stop date: 09/13/17 23:27:00 INTAKE MAN Notes: (Same as: Humalog ) Roll in palms of hands gently; Do not shake ` vigorously. "Single PatientUse Only " (Restricted to patients requiring a dose > 60 units)WASTE: F/P - Black; E - Municipal Trash Bin Stable for 28 days at room temperature.Expires in days from Date Start Date: 08/14/17 Stop Date: 08/18/17 Status: Discontinuedinsulin lispro 2 unit, 0.02 mL, Route: SUB-Q, Drug form: SOLN, Sliding Scale, Dosing Weight 106.818, kg, PRN Blood Glucose Results, Start date: 08/14/17 23:28:00 INTAKE MAN, Duration: 30 day, Stop date: 09/13/17 23:27:00 INTAKE MAN Notes: (Same as: Humalog ) Roll in palms of hands gently; Do not shake ` vigorously. "Single PatientUse Only " (Restricted to patients requiring a dose > 60 units)WASTE: F/P - Black; E - Municipal Trash Bin Stable for 28 days at room temperature.Expires in days from Date Start Date: 08/14/17 Stop Date: 08/18/17 Status: DiscontinuedLantus 100 units/mL 5 unit, 0.05 mL, Route: SUB-Q, Drug form: SOLN, Bedtime, Dosing Weight 104.545, kg, Start date: 08/15/17 21:00:00 INTAKE MAN, Duration: 30 day, Stop date: 09/13/17 21: 00:00 INTAKE MAN Notes: Same as: Lantus)Do not hold insulin without contacting prescriberWASTE: F /P - Black; E - Municipal Trash Bin Start Date: 08/15/17 Stop Date: 08/17/17 Status: Discontinuedlidocaine (ANES) Route: IV, Drug form: INJ, ONCE, Stop date: 08/15/17 15:16:00 INTAKE MAN Start Date: 08/15/17 Stop Date: 08/15/17 Status: CompletedLR 1000 mL INJ (ANES) Route: IV, Total Volume: 1,000, Start date: 08/15/17 14:17:00 INTAKE MAN, Stop date: 15:17:00 INTAKE MAN Start Date: 08/15/17 Stop Date: 08/15/17 Status: CompletedLR 1000 mL INJ (ANES) Route: IV, Total Volume: 1,000, Start date: 08/15/17 14:50:00 INTAKE MAN, Stop date: 15:50:00 INTAKE MAN Start Date: 08/15/17 Stop Date: 08/15/17 Status: CompletedmetFORMIN 500 mg oral tablet 500 mg, 1 tab, Route: PO, Drug form: TAB, TID, Dosing Weight 104.545, kg, Start date: 08/17/17 9:00:00 INTAKE MAN, Duration: 30 day, Stop date: 09/15/17 17:00:00 INTAKE MAN Notes: (Same as: Glucophage) Take with meal Start Date: 08/17/17 Stop Date: 08/18/17 Status: DiscontinuedmetFORMIN 500 mg oral tablet 500 mg=1 tab, PO, TID, # 90 tab, 0 Refill(s), Pharmacy: [facility] [id number] Start Date: 08/18/17 Stop Date: 09/17/17 Status: Orderedmethocarbamol 1,000 mg, 2 tab, Route: PO, Drug form: TAB, Q8H, Dosing Weight 106.818, kg, PRN Muscle Spasms, Startdate: 08/14/17 23:26:00 INTAKE MAN, Duration: 30 day, Stop date: 23:25:00 INTAKE MAN Notes: (Same as:Robaxin) Start Date: 08/14/17 Stop Date: 08/18/17 Status: Discontinuedmethocarbamol 500 mg oral tablet 1,000 mg=2 tab, PO, Q8H, PRN Muscle Spasms, X 5 day, # 30 tab, 0 Refill(s), [facility] [id number] Start Date: 08/18/17 Stop Date: 08/23/17 Status: Orderedmidazolam (ANES) Route: IV, Drug form: SOLN, ONCE, Stop date: 08/15/17 14:50:00 INTAKE MAN Start Date: 08/15/17 Stop Date: 08/15/17 Status: Completedmorphine Sulfate 4 mg, Route: IVP, ONCE, Dosing Weight 106.818, kg, Priority: STAT, Start date: 08/14/17 19:19:00 INTAKE MAN, Stop date: 08/14/17 19:19:00 INTAKE MAN Start Date: 08/14/17 Stop Date: 08/14/17 Status: Completedmorphine Sulfate 4 mg, Route: IVP, ONCE, Dosing Weight 106.818, kg, Priority: STAT, Start date: 08/14/17 21:34:00 INTAKE MAN, Stop date: 08/14/17 21:34:00 INTAKE MAN Start Date: 08/14/17 Stop Date: 08/14/17 Status: Completednystatin topical 100,000 units/g powder 1 appl, Route: TOP, QSHIFT, Drug form: PWDR, Start date: 08/18/17 0:00:00 INTAKE MAN, Duration: 30 day, Stop date: 09/16/17 16:00:00 INTAKE MAN Notes: (Same as:Mycostatin, Nilstat) For external use only. Start Date: 08/18/17 Stop Date: 08/18/17 Status: Discontinuedondansetron 4 mg, 2 mL, Route: IVP, Drug form: INJ, Q8H, Dosing Weight 106.818, kg, PRN Nausea & Vomiting, Start date: 08/14/17 23:26:00 INTAKE MAN, Duration: 30 day, Stop date: 09/13/17 23:25:00 INTAKE MAN Notes: (Same as: Zofran) MEDICATION WASTE Product Size: 4 mgProduct Wasted: ___ mg Start Date: 08/14/17 Stop Date: 08/18/17 Status: Discontinuedondansetron 4 mg, Route: IVP, Drug form: INJ, ONCE, Dosing Weight 106.818, kg, Priority: STAT, Start date: 08/14/17 19:19:00 INTAKE MAN, Stop date: 08/14/17 19:19:00 INTAKE MAN Start Date: 08/14/17 Stop Date: 08/14/17 Status: Completedondansetron (ANES) Route: IV, Drug form: INJ, ONCE, Stop date: 08/15/17 17:47:00 INTAKE MAN Start Date: 08/15/17 Stop Date: 08/15/17 Status: CompletedoxyCODONE 5 mg immediate release 10 mg, 2 tab, Route: PO, Drug form: TAB, Q4H, Dosing Weight 106.818, kg, PRN Pain Score 7-10, Start date: 08/14/17 23:26:00 INTAKE MAN, Duration: 30 day, Stop date : 09/13/17 23:25:00 INTAKE MAN Notes: (Same as: Roxicodone) Start Date: 08/14/17 Stop Date: 08/18/17 Status: DiscontinuedoxyCODONE 5 mg immediate release 5 mg, 1 tab, Route: PO, Drug form: TAB, Q4H, Dosing Weight 106.818, kg, PRN Pain Score 4-6, Start date: 08/14/17 23:26:00 INTAKE MAN, Duration: 30 day, Stop date: 09/13/17 23:25:00 INTAKE MAN Notes: (Same as: Roxicodone) Start Date: 08/14/17 Stop Date: 08/18/17 Status: Discontinuedphenylephrine (ANES) Route: IV, Drug form: INJ, ONCE, Stop date: 08/15/17 17:37:00 INTAKE MAN Start Date: 08/15/17 Stop Date: 08/15/17 Status: Completedphenylephrine (ANES) Route: IV, Drug form: INJ, ONCE, Stop date: 08/15/17 15:41:00 INTAKE MAN Start Date: 08/15/17 Stop Date: 08/15/17 Status: Completedphenylephrine (ANES) Route: IV, Drug form: INJ, ONCE, Stop date: 08/15/17 15:21:00 INTAKE MAN Start Date: 08/15/17 Stop Date: 08/15/17 Status: Completedpropofol (ANES) Route: IV, Drug form: INJ, ONCE, Stop date: 08/15/17 15:16:00 INTAKE MAN Start Date: 08/15/17 Stop Date: 08/15/17 Status: Completedrocuronium (ANES) Route: IV, Drug form: INJ, ONCE, Stop date: 08/15/17 15:16:00 INTAKE MAN Start Date: 08/15/17 Stop Date: 08/15/17 Status: Completedrocuronium (ANES) Route: IV, Drug form: INJ, ONCE, Stop date: 08/15/17 15:46:00 INTAKE MAN Start Date: 08/15/17 Stop Date: 08/15/17 Status: CompletedSaline Flush 0.9% 10 ml, Route: IVP, Drug Form: INJ, Dosing Weight 106.818, kg, PRN, PRN Line Flush, Start date: 08/14/17 23:26:00 INTAKE MAN, Duration: 30 day, Stop date: 09/13/17 23:25:00 INTAKE MAN Notes: (Same as: BD Posiflush) Start Date: 08/14/17 Stop Date: 08/18/17 Status: Discontinuedsenna 17.2 mg, 2 tab, Route: PO, Drug Form: TAB, Dosing Weight 106.818, kg, Bedtime, Start date: 08/15/17 21:00:00 INTAKE MAN, Duration: 30 day, Stop date: 09/13/17 21:00: 00 INTAKE MAN Notes: (Same as: Senokot) Start Date: 08/15/17 Stop Date: 08/18/17 Status: Discontinuedsodium chloride 0.45% 1000 ml INJ 1,000 mL 1,000 mL, Rate: 125 ml/hr, Infuse over: 8 hr, Route: IV, Dosing Weight 106.818 kg, Total Volume: 1,000, Start date: 08/14/17 23:26:00 INTAKE MAN, Duration: 30 day, Stop date: 09/13/17 23:25:00 INTAKE MAN Start Date: 08/14/17 Stop Date: 08/15/17 Status: Discontinuedsodium chloride 0.9% 1000 ml INJ 1,000 mL 1,000 mL, Rate: 75 ml/hr, Infuse over: 13.3 hr, Route: IV, Dosing Weight 106.818 kg, Total Volume: 1,000, Start date: 08/15/17 3:39:00 INTAKE MAN, Duration: 30 day, Stop date: 09/14/17 3:38:00 INTAKE MAN Start Date: 08/15/17 Stop Date: 08/18/17 Status: Discontinuedtramadol 100 mg, 2 tab, Route: PO, Drug form: TAB, Q6Hnow, Dosing Weight 106.818, kg, Start date: 08/15/17 0:00:00 INTAKE MAN, Duration: 30 day, Stop date: 09/13/17 18:00: 00 INTAKE MAN Notes: Not to exceed 400mg/day. (Same As: Ultram) Start Date: 08/15/17 Stop Date: 08/18/17 Status: Discontinuedtramadol 50 mg oral tablet 100 mg=2 tab, PO, Q6Hnow, X 7 day, # 56 tab, 0 Refill(s) Start Date: 08/18/17 Stop Date: 08/25/17 Status: Ordered Results BLOOD BANK RESULTS Most recent to oldest [Reference Range]: 1 2 3 ABO/Rh O NEG *Unknown* (08/14/17 7:50 PM) Antibody Scrn Negative (08/14/17 7:50 PM) ELECTROLYTES Most recent to oldest 1 2 3 [Reference Range]: Sodium Lvl [135-145 mEq/L] 138 mEq/L 137 mEq/L 137 mEq/L (08/17/17 5:07 AM) (08/16/17 6:37 AM) (08/15/17 5:43 AM) Potassium Lvl [3.5-5.1 3.3 mEq/L 3.9 mEq/L 3.4 mEq/L mEq/L] *LOW* (08/16/17 6:37 AM) *LOW* (08/17/17 5:07 AM) (08/15/17 5:43 AM) Chloride Lvl [95-109 mEq/L] 102 mEq/L 104 mEq/L 101 mEq/L (08/17/17 5:07 AM) (08/16/17 6:37 AM) (08/15/17 5:43 AM) CO2 [24-32 mEq/L] 30 mEq/L 29 mEq/L 27 mEq/L (08/17/17 5:07 AM) (08/16/17 6:37 AM) (08/15/17:43 AM) AGAP [10.0-20.0 mEq/L] 9.3 mEq/L 7.9 mEq/L 12.4 mEq/L *LOW* *LOW* (08/15/17:43 AM) (08/17/17 5:07 AM) (08/16/17 6:37 AM) CHEM PANEL Most recent to oldest 1 2 3 [Reference Range]: Creatinine Lvl [0.50-1.40 0.45 mg/dL 0.47 mg/dL 0.46 mg/dL mg/dL] *LOW* *LOW* *LOW* (08/17/17 5:07 AM) (08/16/17 6:37 AM) (08/15/17 5:43 AM) eGFR 109 mL/min/1.73m2 1 107 mL/min/1.73m2 2 108 mL/min/1.73m2 3 *NA* *NA* *NA* (08/17/17 5:07 AM) (08/16/17 6:37 AM) (08/15/17 5:43 AM) BUN [7-22 mg/dL] 9 mg/dL 11 mg/dL 13 mg/dL (08/17/17 5:07 AM) (08/16/17 6:37 AM) (08/15/17 5:43 AM) B/C Ratio [6-25] 23 (08/16/17 6:37 AM) Glucose Lvl [70-99 mg/dL] 275 mg/dL 276 mg/dL 346 mg/dL *HI* *HI* *HI* (08/17/17 5:07 AM) (08/16/17 6:37 AM) (08/15/17 5:43 AM) Total Protein [6.4-8.4 5.9 g/dL g/dL] *LOW* (08/16/17 6:37 AM) Albumin Lvl [3.5-5.0 g/dL] 2.4 g/dL *LOW* (08/16/17 6:37 AM) Globulin [2.7-4.2 g/dL] 3.5 g/dL (08/16/17 6:37 AM) A/G Ratio [0.7-1.6] 0.7 (08/16/17 6:37 AM) Calcium Lvl [8.5-10.5 8.6 mg/dL 8.1 mg/dL 8.2 mg/dL mg/dL] (08/17/17 5:07 AM) *LOW* *LOW* (08/16/17 6:37 AM) (08/15/17 5:43 AM) ALT [0-65 unit/L] 34 unit/L (08/16/17 6:37 AM) AST [0-37 unit/L] 23 unit/L (08/16/17 6:37 AM) Alk Phos [39-136 unit/L] 110 unit/L (08/16/17 6:37 AM) Bili Total [0.2-1.3 mg/dL] 0.2 mg/dL (08/16/17 6:37 AM) Lactic Acid WB [0.5-2.2 1.1 mmol/L mmol/L] (08/14/17 7:56 PM) Vitamin D, 25-OH, Total 10.3 ng/mL [30.0-100.0 ng/mL] *LOW* (08/15/17 1:30 PM) 1Result Comment: The eGFR is calculated using the CKD-EPI formula. In most young , healthy individualsthe eGFR will be >90 mL/min/1.73m2. The eGFR declines with age. An eGFR of 60-89 may be normal in some populations, particularly the elderly, for whom the CKD-EPI formula has not been extensively validated. Use of the eGFR is not recommended in the following populations: Individuals with unstable creatinine concentrations, including patients and those with serious co-morbid conditions. Patients with extremes in muscle mass or diet. The data above are obtained from the National Kidney Disease Education Program ( NKDEP) which additionally recommends that when the eGFR is used in patients with extremes of body mass index for purposesof drug dosing, the eGFR should be multiplied by the estimated BMI.2Result Comment: The eGFR is calculated using the CKD-EPI formula. In most young, healthy individualsthe eGFR will be >90 mL/ min/1.73m2. The eGFR declines with age. An eGFR of 60-89 may be normal in some populations, particularly the elderly, for whom the CKD-EPI formula has not been extensively validated. Use of the eGFR is not recommended in the following populations: Individuals with unstable creatinine concentrations, including patients and those with serious co-morbid conditions. Patients with extremes in muscle mass or diet. The data above are obtained from the [employer] ( [employer]) which additionally recommends that when the eGFR is used in patients with extremes of body mass index for purposesof drug dosing, the eGFR should be multiplied by the estimated BMI.3Result Comment: The eGFR is calculated using the CKD-EPI formula. In most young, healthy individualsthe eGFR will be >90 mL/ min/1.73m2. The eGFR declines with age. An eGFR of 60-89 may be normal in some populations, particularly the elderly, for whom the CKD-EPI formula has not been extensively validated. Use of the eGFR is not recommended in the following populations: Individuals with unstable creatinine concentrations, including patients and those with serious co-morbid conditions. Patients with extremes in muscle mass or diet. The data above are obtained from the [employer] ( [employer]) which additionally recommends that when the eGFR is used in patients with extremes of body mass index for purposesof drug dosing, the eGFR should be multiplied by the estimated BMI.SPECIAL CHEMISTRY Most recent to oldest [Reference Range]: 1 2 3 Hgb A1C [<=5.6 %] 12.7 % *HI* (08/15/17 5:43 AM) PARATHYROID PROFILE Most recent to oldest [Reference Range]: 1 2 3 PTH Intact [11.1-79.5 pg/mL] 34.2 pg/mL (08/15/17 1:30 PM) IMMUNOLOGY Most recent to oldest [Reference Range]: 1 2 3 CDC HIV 4th GEN [Negative] Negative *NA* (08/14/17 7:50 PM) HEMATOLOGY Most recent to oldest 1 2 3 [Reference Range]: WBC [3.7-10.4 K/CMM] 8.2 K/CMM 8.5 K/CMM 8.0 K/CMM (08/17/17 5:07 AM) (08/16/17 6:37 AM) (08/15/17 5:43 AM) RBC [4.20-5.40 M/CMM] 2.68 M/CMM 2.99 M/CMM 3.49 M/CMM *LOW* *LOW* *LOW* (08/17/17 5:07 AM) (08/16/17 6:37 AM) (08/15/17 5:43 AM) Hgb [12.0-16.0 g/dL] 7.6 g/dL 8.5 g/dL 9.8 g/dL *LOW* *LOW* *LOW* (08/17/17 5:07 AM) (08/16/17 6:37 AM) (08/15/17 5:43 AM) Hct [36.0-48.0 %] 22.3 % 24.9 % 29.0 % *LOW* *LOW* *LOW* (08/17/17 5:07 AM) (08/16/17 6:37 AM) (08/15/17 5:43 AM) MCV [80.0-98.0 fL] 83.3 fL 83.3 fL 83.1 fL (08/17/17 5:07 AM) (08/16/17 6:37 AM) (08/15/17 5:43 AM) MCH [27.0-31.0 pg] 28.5 pg 28.3 pg 28.0 pg (08/17/17 5:07 AM) (08/16/17 6:37 AM) (08/15/17 5:43 AM) MCHC [32.0-36.0 g/dL] 34.2 g/dL 34.0 g/dL 33.8 g/dL (08/17/17 5:07 AM) (08/16/17 6:37 AM) (08/15/17 5:43 AM) RDW [11.5-14.5 %] 14.3 % 14.2 % 14.2 % (08/17/17 5:07 AM) (08/16/17 6:37 AM) (08/15/17 5:43 AM) Platelet [133-450 K/CMM] 191 K/CMM 199 K/CMM 246 K/CMM (08/17/17 5:07 AM) (08/16/17 6:37 AM) (08/15/17 5:43 AM) MPV [7.4-10.4 fL] 7.6 fL 7.3 fL 7.3 fL (08/17/17 5:07 AM) *LOW* *LOW* (08/16/17 6:37 AM) (08/15/17 5:43 AM) Segs [45.0-75.0 %] 65.7 % 74.5 % 61.1 % (08/17/17 5:07 AM) (08/16/17 6:37 AM) (08/15/17 5:43 AM) Lymphocytes [20.0-40.0 %] 23.1 % 15.8 % 29.1 % (08/17/17 5:07 AM) *LOW* (08/15/17 5:43 AM) (08/16/17 6:37 AM) Monocytes [2.0-12.0 %] 6.1 % 7.0 % 8.2 % (08/17/17 5:07 AM) (08/16/17 6:37 AM) (08/15/17 5:43 AM) Eosinophils [0.0-4.0 %] 4.5 % 2.2 % 1.0 % *HI* (08/16/17 6:37 AM) (08/15/17 5:43 AM) (08/17/17 5:07 AM) Basophils [0.0-1.0 %] 0.6 % 0.5 % 0.6 % (08/17/17 5:07 AM) (08/16/17 6:37 AM) (08/15/17 5:43 AM) Segs-Bands # [1.5-8.1 K/CMM] 5.4 K/CMM 6.3 K/CMM 4.9 K/CMM (08/17/17 5:07 AM) (08/16/17 6:37 AM) (08/15/17 5:43 AM) Lymphocytes # [1.0-5.5 1.9 K/CMM 1.3 K/CMM 2.3 K/CMM K/CMM] (08/17/17 5:07 AM) (08/16/17 6:37 AM) (08/15/17 5:43 AM) Monocytes # [0.0-0.8 K/CMM] 0.5 K/CMM 0.6 K/CMM 0.7 K/CMM (08/17/17 5:07 AM) (08/16/17 6:37 AM) (08/15/17 5:43 AM) Eosinophils # [0.0-0.5 0.4 K/CMM 0.2 K/CMM 0.1 K/CMM K/CMM] (08/17/17 5:07 AM) (08/16/17 6:37 AM) (08/15/17 5:43 AM) Basophils # [0.0-0.2 K/CMM] 0.1 K/CMM (08/14/17 7:35 PM) PT [12.0-14.7 seconds] 15.8 seconds *HI* (08/15/17 5:43 AM) INR [0.85-1.17] 1.25 *HI* (08/15/17 5:43 AM) PTT [22.9-35.8 seconds] 41.4 seconds *HI* (08/15/17 5:43 AM) ACT (TEG) Rapid [86-118 105 seconds seconds] (08/14/17 7:35 PM) Split Point Rapid 0.5 minutes *NA* (08/14/17 7:35 PM) R-time Rapid [0.4-0.7 0.6 minutes minutes] (08/14/17 7:35 PM) K-time Rapid [0.6-2.3 0.8 minutes minutes] (08/14/17 7:35 PM) Angle Rapid [64-80 degrees] 81 degrees *HI* (08/14/17 7:35 PM) Max Amplitude Rapid [52-71 76 mm mm] *HI* (08/14/17 7:35 PM) G-value Rapid [5.0-11.6 K 15.9 K d/sc d/sc] *HI* (08/14/17 7:35 PM) Estimated % Lysis Rapid 1.3 % [0.0-7.5 %] (08/14/17 7:35 PM) Immunizations No data available for this section Procedures Procedure Date Related Diagnosis Body Site Appendectomy 1968 Social History Social History Type Response Substance Abuse Use: None. Alcohol Past, Previous treatment: None. Alcohol use interferes with work or home: No. Drinks more than intended: No. Smoking Status Current some day smoker; Type: Cigarettes; Ready to change: No; Concerns about tobacco use in household: No; Exposure to Tobacco Smoke None; Cigarette Smoking Last 365 Days Yes; Reg Smoking Cessation Counseling No; Tobacco use per day: 1; Assessment and Plan Extracted from: Title: Clinical Document Author: Alejandrina Garcia MD Date: 08/18/17 Orthopaedic [...] Exam: AOx3 LEFT LOWER EXTREMITY EXAM: INSPECTION & PALPATION: Dressing c/d/i. KI in place. Mild [...] Alejandrina Garcia [place] [id number] c [phone] Extracted from: Title: [facility] Author: Veronika Rothman Date: 08/16/17 [...] She was taken to the ED in [facility], but then transferred [facility] for HLOC. She was diagnosed w/ a [...] 1.3 Monocytes # 0.6 Eosinophils # 0.2 08/159 POC Performing Locatio See Note Glucose POC [...] CONTRAST, WITH 3-D DATE: 08/14/2017 10:08 PM INTAKE MAN IMPRESSION: 1. Comminuted, displaced and overriding left [...] FEMUR 2 VIEWS DATE: 08/15/2017 2:45 PM INTAKE MAN FINDINGS:Patient is status post intramedullary nail with [...] primary. [facility] up in [facility] ([phone]) as outpatient 3-4 weeks after discharge. Patient will need the following as outpatient for additional osteoporosis workup: 1. DXA 2. Labs: BSAP, P1NP, NTx, magnesium, phosphorus, TSH, T4 3. Repeat vitamin D level and ionized calcium in 3 months. Please call [phone] with any questions or concerns. Veronika Rothman PA-C [employer] Manager Extracted from: Title: Clinical Document Author: Alejandrina Garcia MD Date: 08/15/17 Orthopaedic Trauma Brief Op Note Pre op dx: Left open intra articular distal femur fracture Post op dx: Same Procedure: Irrigation & debridement of lef topen distal femur fracture, [...] gross contamination Implants: Roberta retrograde femoral nail [id number], 6 5.0mm locking screws, 4 distal 2 [...] will continue to follow in house Extracted from: Title: History and Physical Author: Paul Day MD Date: 08/14/17 61-year-old femaletripped and fell, sustained leftfemur open fracture. Patient will undergo orthopedic surgery tomorrow. 1.Left Femur Open fracture Left femur open fracturestatus postmechanical fall. Patient was splinted pendingsurgical reduction Nonweightbearing toleft lower extremity Start Ancef for perioperativeprophylaxis PostopPT OT Ordered: Ancef, 1 gm, Route: IVPB, Drug form: PDR/INJ, ABXQ8H, Dosing Weight 106.818, kg , Start date: 08/15/17 0:00:00 INTAKE MAN, Duration: 5 day, Stop date: 08/19/17 16:00: 00 INTAKE MAN, ABX Indication: Surgical Prophylaxis Admit/Condition, 08/14/17 23:26:00 INTAKE MAN, Status: Inpatient, Acute, Expected LOS : 3 or Greater Midnights, Brandon Nunez MD, Admit Review/Approve Yes, Isolation: No Isolation/Standard Precautions Hgb A1c, 08/14/17 23:43:00 INTAKE MAN, Routine, ONCE, 1, day 2.Accidental fall Patient has a regular gait andgood exercise toleranceprior to the incident. Will needPT OT evaluationafter surgery Ordered: Ancef, 1 gm, Route: IVPB, Drug form: PDR/INJ, ABXQ8H, Dosing Weight 106.818, kg , Start date: 08/15/17 0:00:00 INTAKE MAN, Duration: 5 day, Stop date: 08/19/17 16:00: 00 INTAKE MAN, ABX Indication: Surgical Prophylaxis Admit/Condition, 08/14/17 23:26:00 INTAKE MAN, Status: Inpatient, Acute, Expected LOS : 3 or Greater Midnights, Brandon Nunez MD, Admit Review/Approve Yes, Isolation: No Isolation/Standard Precautions Hgb A1c, 08/14/17 23:43:00 INTAKE MAN, Routine, ONCE, 1, day 3.Acute pain due to trauma Start acetaminophenand tramadol with as neededNorco Aggressive bowel regimen Ordered: Ancef, 1 gm, Route: IVPB, Drug form: PDR/INJ, ABXQ8H, Dosing Weight 106.818, kg , Start date: 08/15/17 0:00:00 INTAKE MAN, Duration: 5 day, Stop date: 08/19/17 16:00: 00 INTAKE MAN, ABX Indication: Surgical Prophylaxis Admit/Condition, 08/14/17 23:26:00 INTAKE MAN, Status: Inpatient, Acute, Expected LOS : 3 or Greater Midnights, Brandon Nunez MD, Admit Review/Approve Yes, Isolation: No Isolation/Standard Precautions Hgb A1c, 08/14/17 23:43:00 INTAKE MAN, Routine, ONCE, 1, day 4.Osteoarthritis Continue vitamin D and calcium 5.hyperglycemia BG is376. However patient denies history of diabetes. I ordered A1c Start lispro SS Ordered: Ancef, 1 gm, Route: IVPB, Drug form: PDR/INJ, ABXQ8H, Dosing Weight 106.818, kg , Start date: 08/15/17 0:00:00 INTAKE MAN, Duration: 5 day, Stop date: 08/19/17 16:00: 00 INTAKE MAN, ABX Indication: Surgical Prophylaxis Admit/Condition, 08/14/17 23:26:00 INTAKE MAN, Status: Inpatient, Acute, Expected LOS : 3 or Greater Midnights, Brandon Nunez MD, Admit Review/Approve Yes, Isolation: No Isolation/Standard Precautions Hgb A1c, 08/14/17 23:43:00 INTAKE MAN, Routine, ONCE, 1, day 6.Encounter for preoperative assessment for cardiac surgery Patient will undergo surgical reduction for left femur open fx, consider intermediate surgical risk. She had a remote appendectomy without surgical complication. Patient denies dyspnea, chest pain, abdominal pain nausea vomiting. NRRR, S1S2, lung is clear, no neurological deficit. She has good ET, walk 1 -2 miles, and 2/3 flights of stairs. MET>4. no EKG in chart, I order EKG pending read. Although based on her MET No additional cardiac [...] 106.818, kg , Start date: 08/15/17 0:00:00 INTAKE MAN, Duration: 5 day, Stop date: 08/19/17 16:00: 00 INTAKE MAN, ABX Indication: Surgical Prophylaxis Admit/Condition, 08/14/17 23:26:00 INTAKE MAN, Status: Inpatient, Acute, Expected LOS : 3 or Greater Midnights, Brandon Nunez MD, Admit Review/Approve Yes, Isolation: No Isolation/Standard Precautions Hgb A1c, 08/14/17 23:43:00 INTAKE MAN, Routine, ONCE, 1, day Lovenox, stat dose given tonight pending ORS surgery. expect3-4 MN.
[2019-04-30 17:46] LABS: Protime INR 1.56
[2019-04-30 17:56] LABS: Absolute Lymphocytes (CBC) 0.6 K/uL (0.7-4.9); Basophils % 0.1 % (0-1.3); Hematocrit 27.5 % (36.0-45.0); Lymphocytes % 8.2 % (15.3-44.8); MPV 6.4 fL (7.6-11.3); RBC Red Blood Cell Count 3.73 M/uL (3.86-4.86)
--- NOTE | 2019-04-30 18:03 | EDPHYS ---
Physician Documentation [facility] [place] Name: Kandy Zamora Age: 63 yrs Sex: Female : 1955 Arrival Date: 04/30/2019 Time: 17:12 Bed 28 Private MD: ED Physician Kurt Peralta HPI: 04/30 17:56 This 63 yrs old Female presents to ER via EMS with complaints of sob, low denisse blood glucose, vomiting and diarrhea. 17:56 The patient has shortness of breath at rest, with light activity. Onset: The denisse symptoms/episode began/occurred 2 day(s) ago. Duration: The symptoms are continuous, and are steadily getting worse. The patient's shortness of breath has no apparent modifying factors. The patient or guardian reports cough, difficulty breathing. Onset: The symptoms/episode began/occurred 1 week(s) ago. Modifying factors: The symptoms are alleviated by nothing. the symptoms are aggravated by nothing. The patient has experienced near-syncope, almost passed out. Historical: - Allergies: 17:22 PENICILLINS; rv - Home Meds: 17:22 glimepiride 2 mg Oral tab 1 tab twice a day [Active]; metformin 500 mg Oral Tb24 1 tab rv 2 times per day [Active]; Tylenol #3 Oral [Active]; prochlorperazine maleate 5 mg Oral tab 1 tab every 6 hours for Nausea and Vomiting [Active]; - PMHx: 17:22 Arthritis; rv - PSHx: 17:23 femur surgery; rv 17:24 Appendectomy; rv - Immunization history:: Adult Immunizations up to date. - Social history:: Smoking status: Patient/guardian denies using tobacco. - Ebola Screening: : No symptoms or risks identified at this time. - Family history:: not pertinent. ROS: 17:56 Constitutional: Negative for fever, chills, and weight loss, Eyes: Negative for injury, denisse pain, redness, and discharge, ENT: Negative for injury, pain, and discharge, Neck: Negative for injury, pain, and swelling, Abdomen/GI: Negative for abdominal pain, nausea, vomiting, diarrhea, and constipation, Back: Negative for injury and pain, : Negative for injury, bleeding, discharge, and swelling, MS/Extremity: Negative for injury and deformity, Skin: Negative for injury, rash, and discoloration, Neuro: Negative for headache, weakness, numbness, tingling, and seizure, Psych: Negative for depression, anxiety, suicide ideation, homicidal ideation, and hallucinations, Allergy/Immunology: Negative for hives, rash, and allergies, Endocrine: Negative for neck swelling, polydipsia, polyuria, polyphagia, and marked weight changes, Hematologic/Lymphatic: Negative for swollen nodes, abnormal bleeding, and unusual bruising. 17:56 Cardiovascular: Positive for palpitations. 17:56 Respiratory: Positive for cough, shortness of breath, wheezing, expiratory. Exam: 17:56 Constitutional: This is a well developed, well nourished patient who is awake, alert, denisse and in no acute distress. Head/Face: Normocephalic, atraumatic. Eyes: Pupils equal round and reactive to light, extra-ocular motions intact. Lids and lashes normal. Conjunctiva and sclera are non-icteric and not injected. Cornea within normal limits. Periorbital areas with no swelling, redness, or edema. ENT: Nares patent. No nasal discharge, no septal abnormalities noted. Tympanic membranes are normal and external auditory canals are clear. Oropharynx with no redness, swelling, or masses, exudates, or evidence of obstruction, uvula midline. Mucous membranes moist. Neck: Trachea midline, no thyromegaly or masses palpated, and no cervical lymphadenopathy. Supple, full range of motion without nuchal rigidity, or vertebral point tenderness. No Meningismus. Chest/axilla: Normal chest wall appearance and motion. Nontender with no deformity. No lesions are appreciated. Abdomen/GI: Soft, non-tender, with normal bowel sounds. No distension or tympany. No guarding or rebound. No evidence of tenderness throughout. Back: No spinal tenderness. No costovertebral tenderness. Full range of motion. Skin: Warm, dry with normal turgor. Normal color with no rashes, no lesions, and no evidence of cellulitis. MS/ Extremity: Pulses equal, no cyanosis. Neurovascular intact. Full, normal range of motion. Neuro: Awake and alert, GCS 15, oriented to person, place, time, and situation. Cranial nerves II-XII grossly intact. Motor strength 5/5 in all extremities. Sensory grossly intact. Cerebellar exam normal. Normal gait. Psych: Awake, alert, with orientation to person, place and time. Behavior, mood, and affect are within normal limits. 17:56 Cardiovascular: Rate: tachycardic, Rhythm: regular, Pulses: Pulses are 4+ in bilateral radial, brachial, femoral, popliteal, posterior tibial and and dorsalis pedis arteries.. Heart sounds: normal, Edema: is not appreciated, JVD: is not appreciated. Vital Signs: 17:16 BP 105 / 50; Pulse 109; Resp 18; Temp 98.2; Pulse Ox 80% on R/A; Weight 92.53 kg; rv Height 5 ft. 8 in. (172.72 cm); 20:33 BP 110 / 57; Pulse 108; Resp 20; Pulse Ox 96% on 3 lpm NC; mg2 21:33 BP 121 / 57; Pulse 108; Resp 18; Temp 98.3; Pulse Ox 98% on 3 lpm NC; Pain 0/10; mg2 17:16 Body Mass Index 31.02 (92.53 kg, 172.72 cm) rv MDM: 17:17 Patient medically screened. [facility] 17:59 Data reviewed: vital signs, nurses notes, lab test result(s), EKG, radiologic studies, denisse plain films. 04/30 17:23 Order name: Basic Metabolic Panel [facility] 04/30 17:23 Order name: CBC with Diff; Complete Time: 19:20 mg2 04/30 17:23 Order name: LFT's; Complete Time: 19:20 mg2 04/30 17:23 Order name: Magnesium; Complete Time: 19:20 mg2 04/30 17:23 Order name: NT PRO-BNP; Complete Time: 19:20 mg2 04/30 17:23 Order name: PT-INR; Complete Time: 19:20 mg2 04/30 17:23 Order name: Troponin (emerg Dept Use Only); Complete Time: 19:20 mg2 04/30 17:23 Order name: XRAY Chest (1 view); Complete Time: 19:20 mg2 04/30 17:25 Order name: Basic Metabolic Panel; Complete Time: 19:20 EDMS 04/30 17:55 Order name: Blood Culture Adult (2) denisse 04/30 17:58 Order name: CBC Smear Scan; Complete Time: 19:20 EDMS 04/30 19:51 Order name: CT Aorta for Dissection; Complete Time: 22:20 denisse 04/30 21:07 Order name: Glucose, Ancillary Testing; Complete Time: 22:20 EDMS 04/30 17:23 Order name: EKG; Complete Time: 17:25 mg2 04/30 17:23 Order name: Cardiac monitoring; Complete Time: 17:34 mg2 04/30 17:23 Order name: EKG - Nurse/Tech; Complete Time: 17:34 mg2 04/30 17:23 Order name: IV Saline Lock; Complete Time: 17:34 mg2 04/30 17:23 Order name: Labs collected and sent; Complete Time: 17:34 mg2 04/30 17:23 Order name: O2 Per Protocol; Complete Time: 17:34 mg2 04/30 17:23 Order name: O2 Sat Monitoring; Complete Time: 17:34 mg2 Administered Medications: 18:35 Drug: Pepcid 20 mg Route: IVP; Site: right antecubital; mg2 20:33 Follow up: Response: No adverse reaction mg2 18:36 Drug: Albuterol - atroVENT (3:1) (2.5 mg - 0.5 mg) 3 ml Route: Nebulizer; mg2 20:33 Follow up: Response: No adverse reaction; Marked relief of symptoms mg2 18:36 Drug: SOLU-Medrol 125 mg Route: IVP; Site: right antecubital; mg2 20:33 Follow up: Response: No adverse reaction mg2 18:36 Drug: LevaQUIN 500 mg Volume: 100 ml; Route: IVPB; Infused Over: 60 mins; Site: right mg2 antecubital; 20:32 Follow up: Response: No adverse reaction; IV Status: Completed infusion mg2 20:27 Drug: Potassium Chloride 20 mEq Route: IV; Rate: per protocol; Site: right antecubital; mg2 22:06 Follow up: Response: No adverse reaction; IV Status: Infusion continued upon admission mg2 20:27 Drug: NS 0.9% 500 ml Route: IV; Rate: bolus; Site: right antecubital; mg2 22:05 Follow up: Response: No adverse reaction; IV Status: Completed infusion; IV Intake: mg2 500ml 22:22 Drug: NS 0.9% with KCl 20 mEq/L 1000 ml Route: IV; Rate: 125 ml/hr; Site: right mg2 antecubital; 22:22 Follow up: Response: No adverse reaction; IV Status: Infusion continued upon admission mg2 Point of Care Testing: Blood Glucose: 17:16 Blood Glucose: 109 mg/dL; rv 21:33 Blood Glucose: 109 mg/dL; mg2 Ranges: Critical Glucose Levels:Adult <50 mg/dl or >400 mg/dl <40 mg/dl or >180 mg/dl Disposition: 04/30/19 20:16 Hospitalization ordered by Jacky Velasquez for Inpatient Admission. Preliminary diagnosis are Hypoxemia, Anemia, unspecified, Hypokalemia, Pneumonia due to other specified bacteria - pneumonitis, metastatic RCC, Type 2 diabetes mellitus, Hypoglycemia, unspecified. - Bed requested for Telemetry/MedSurg (Inpatient). - Status is Inpatient Admission. mg2 - Condition is Fair. - Problem is new. - Symptoms have improved. UTI on Admission? No Signatures: Dispatcher [employer] EDMS Janet Miller RN RN mw Anderson, Corey, MD MD cha Gardose, Michele, RN RN mg2 Cipriano Cartwright RN RN rv Corrections: (The following items were deleted from the chart) 19:25 18:01 04/30/2019 18:01 Transfer ordered to [facility]. Diagnosis is Dyspnea, denisse unspecified; Hypoxemia; Hypoglycemia, unspecified; Type 2 diabetes mellitus. Reason for transfer: Higher level of care. Accepting physician is to [facility]. Condition is Fair. Problem is new. Symptoms have improved. [facility] 19:32 19:25 04/30/2019 18:01 Transfer ordered to [facility]. Diagnosis is Dyspnea, denisse unspecified; Hypoxemia; Hypoglycemia, unspecified; Type 2 diabetes mellitus; Pneumonia due to other specified bacteria - bilateral pneumonitis; Hypokalemia; Anemia, unspecified. Reason for transfer: Higher level of care. Accepting physician is to [facility]. Condition is Fair. Problem is new. Symptoms have improved. [facility] 19:52 19:32 04/30/2019 18:01 Transfer ordered to [facility]. Diagnosis is denisse Dyspnea, unspecified; Hypoxemia; Hypoglycemia, unspecified; Type 2 diabetes mellitus; Pneumonia due to other specified bacteria - bilateral pneumonitis; Hypokalemia; Anemia, unspecified. Reason for transfer: Higher level of care. Accepting physician is to [facility]. Condition is Fair. Problem is new. Symptoms have improved. denisse 20:13 19:58 04/30/2019 19:58 Transfer ordered to [facility]. [facility] Diagnosis is Dyspnea; Hypoxemia - bilateral interstital lung disease; Anemia, unspecified; Hypokalemia. Reason for transfer: Higher level of care. Accepting physician is to , [facility]. Condition is Fair. Problem is new. Symptoms have improved. [facility] 20:50 20:16 Hospitalization Ordered by Jacky Velasquez DO for Inpatient Admission. Preliminary mw diagnosis is Hypoxemia; Anemia, unspecified; Hypokalemia; Pneumonia due to other specified bacteria - pneumonitis, metastatic RCC; Type 2 diabetes mellitus; Hypoglycemia, unspecified. Bed requested for Telemetry/MedSurg (Inpatient). Status is Inpatient Admission. Condition is Fair. Problem is new. Symptoms have improved. UTI on Admission? No. [facility] 22:23 20:50 04/30/2019 20:16 Hospitalization Ordered by Jacky Velasquez DO for Inpatient mg2 Admission. Preliminary diagnosis is Hypoxemia; Anemia, unspecified; Hypokalemia; Pneumonia due to other specified bacteria - pneumonitis, metastatic RCC; Type 2 diabetes mellitus; Hypoglycemia, unspecified. Bed requested for Telemetry/MedSurg (Inpatient). Status is Inpatient Admission. Condition is Fair. Problem is new. Symptoms have improved. UTI on Admission? No. mw
--- NOTE | 2019-04-30 18:03 | ER ---
Nurse's Notes [facility] Name: Kandy Zamora Age: 63 yrs Sex: Female : 1955 Arrival Date: 04/30/2019 Time: 17:12 Bed 28 Private MD: Diagnosis: Hypoxemia;Anemia, unspecified;Hypokalemia;Pneumonia due to other specified bacteria-pneumonitis, metastatic RCC;Type 2 diabetes mellitus;Hypoglycemia, unspecified Presentation: 04/30 17:12 Presenting complaint: EMS states: patient's blood sugar was 44 at home. gave her d10, rv went up t0 158. she is also complaining of abdominal pain. she is suffering from vomiting and diarrhea for a couple of days and still taking the metformin regularly. she is also a Cancer patient, stage 4 Renal-mets. she is at 3L oxygen per nasal cannula. 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 Transition of care: patient was not received from another setting of care. Onset of symptoms was April 30, 2019 at 16:30. Risk Assessment: Do you want to hurt yourself or someone else? Patient reports no desire to harm self or others. Care prior to arrival: None. Medication(s) given: Albuterol Neb x 1, Atrovent Neb x 1, dextrose 10 IV initiated. 20 GA, in the right antecubital area, Glucose check: 158 Oxygen administered. via nasal cannula. 17:12 Method Of Arrival: EMS: [facility] rv 17:12 Acuity: PINEDA 3 rv 17:37 Initial Sepsis Screen: Does the patient meet any 2 criteria? No. Patient's initial mg2 sepsis screen is negative. Does the patient have a suspected source of infection? No. Patient's initial sepsis screen is negative. Historical: - Allergies: 17:22 PENICILLINS; rv - Home Meds: 17:22 glimepiride 2 mg Oral tab 1 tab twice a day [Active]; metformin 500 mg Oral Tb24 1 tab rv 2 times per day [Active]; Tylenol #3 Oral [Active]; prochlorperazine maleate 5 mg Oral tab 1 tab every 6 hours for Nausea and Vomiting [Active]; - PMHx: 17:22 Arthritis; rv - PSHx: 17:23 femur surgery; rv 17:24 Appendectomy; rv - Immunization history:: Adult Immunizations up to date. - Social history:: Smoking status: Patient/guardian denies using tobacco. - Ebola Screening: : No symptoms or risks identified at this time. - Family history:: not pertinent. Screenin:26 Abuse screen: Denies threats or abuse. Denies injuries from another. Nutritional rv screening: No deficits noted. Tuberculosis screening: No symptoms or risk factors identified. Fall Risk No fall in past 12 months (0 pts). Secondary diagnosis (15 points) impaired mobility, IV access (20 points). Ambulatory Aid- None/Bed Rest/Nurse Assist (0 pts). Gait- Weak (10 pts.). Mental Status- Oriented to own ability (0 pts). Total Soliman Fall Scale indicates Low Risk Score (25-44 pts). Side Rails Up X 2 Placed close to Nursing Station Frequent Obs/Assesments occuring As available Patient and Family Educated on Fall Prevention Program and strategies. Assessment: 17:25 General: Appears in no apparent distress. uncomfortable, Behavior is calm, cooperative. rv Pain: Complains of pain in abdomen. Neuro: Level of Consciousness is awake, alert, obeys commands, Oriented to person, place, time, situation. Cardiovascular: Patient's skin is warm and dry. Respiratory: Airway is patent Respiratory effort is labored, Breath sounds with wheezes bilaterally. GI: Reports diarrhea, nausea, vomiting. : No signs and/or symptoms were reported regarding the genitourinary system. EENT: No signs and/or symptoms were reported regarding the EENT system. Derm: Skin is intact. Musculoskeletal: No signs and/or symptoms reported regarding the musculoskeletal system. 20:35 Reassessment: dr diego at bedside examining the patient. advised for hospitalization. mg2 Vital Signs: 17:16 BP 105 / 50; Pulse 109; Resp 18; Temp 98.2; Pulse Ox 80% on R/A; Weight 92.53 kg; rv Height 5 ft. 8 in. (172.72 cm); 20:33 BP 110 / 57; Pulse 108; Resp 20; Pulse Ox 96% on 3 lpm NC; mg2 21:33 BP 121 / 57; Pulse 108; Resp 18; Temp 98.3; Pulse Ox 98% on 3 lpm NC; Pain 0/10; mg2 17:16 Body Mass Index 31.02 (92.53 kg, 172.72 cm) rv ED Course: 17:12 Patient arrived in ED. rv 17:16 Triage completed. rv 17:17 Kurt Peralta MD is Attending Physician. denisse 17:22 Duc Jenkins RN is Primary Nurse. mg2 17:28 Arm band placed on right wrist. Patient placed in the treatment room, on a stretcher, rv on oxygen, on court recording monitor, on pulse oximetry, Patient notified of wait time. Emesis basin given. EKG completed in triage. Results shown to MD. 17:29 Patient has correct armband on for positive identification. Placed in gown. Bed in low rv position. Call light in reach. Side rails up X2. compliance monitor on. Pulse ox on. NIBP on. 17:36 No provider procedures requiring assistance completed. Maintain EMS IV. Dressing mg2 intact. Good blood return noted. Site clean \T\ dry. Gauge \T\ site: 20 \T\ RAC. IV is patent, is intact. 17:51 XRAY Chest (1 view) In Process Unspecified. EDMS 20:09 CT Aorta for Dissection In Process Unspecified. EDMS 20:13 Jacky Diego DO is Hospitalizing Provider. denisse 22:03 Patient admitted, IV remains in place. mg2 Administered Medications: 18:35 Drug: Pepcid 20 mg Route: IVP; Site: right antecubital; mg2 20:33 Follow up: Response: No adverse reaction mg2 18:36 Drug: Albuterol - atroVENT (3:1) (2.5 mg - 0.5 mg) 3 ml Route: Nebulizer; mg2 20:33 Follow up: Response: No adverse reaction; Marked relief of symptoms mg2 18:36 Drug: SOLU-Medrol 125 mg Route: IVP; Site: right antecubital; mg2 20:33 Follow up: Response: No adverse reaction mg2 18:36 Drug: LevaQUIN 500 mg Volume: 100 ml; Route: IVPB; Infused Over: 60 mins; Site: right mg2 antecubital; 20:32 Follow up: Response: No adverse reaction; IV Status: Completed infusion mg2 20:27 Drug: Potassium Chloride 20 mEq Route: IV; Rate: per protocol; Site: right antecubital; mg2 22:06 Follow up: Response: No adverse reaction; IV Status: Infusion continued upon admission mg2 20:27 Drug: NS 0.9% 500 ml Route: IV; Rate: bolus; Site: right antecubital; mg2 22:05 Follow up: Response: No adverse reaction; IV Status: Completed infusion; IV Intake: mg2 500ml 22:22 Drug: NS 0.9% with KCl 20 mEq/L 1000 ml Route: IV; Rate: 125 ml/hr; Site: right mg2 antecubital; 22:22 Follow up: Response: No adverse reaction; IV Status: Infusion continued upon admission mg2 Point of Care Testing: Blood Glucose: 17:16 Blood Glucose: 109 mg/dL; rv 21:33 Blood Glucose: 109 mg/dL; mg2 Ranges: Intake: 22:05 IV: 500ml; Total: 500ml. mg2 Outcome: 18:01 ER care complete, transfer ordered by . denisse 19:58 ER care complete, transfer ordered by MD. denisse 20:16 Decision to Hospitalize by Provider. denisse 22:03 Admitted to Med/surg accompanied by tech, via stretcher, room 206, with oxygen, with mg2 chart, Report called to IMELDA Mccabe 22:03 Condition: stable 22:03 Instructed on the need for admit, Demonstrated understanding of instructions. 22:23 Patient left the ED. mg2 Signatures: Dispatcher [employer] EDKurt Meier MD MD cha Gardose, Michele, IMELDA RN mg2 Cipriano Cartwright, IMELDA RN rv Corrections: (The following items were deleted from the chart) 22:23 22:03 Admitted to Med/surg accompanied by tech, via stretcher, room 206, with oxygen, mg2 with chart, Report called to 206 mg2
[2019-04-30 18:04] LABS: ALT/SGPT 9 U/L (12-78); AST/SGOT 10 U/L (15-37); Albumin 1.5 g/dL (3.4-5.0); Alkaline Phosphatase 148 U/L (45-117); BUN Blood Urea Nitrogen 9 mg/dL (7-18); Bicarbonate 35 mmol/L (21-32); Bilirubin Direct 0.1 mg/dL (0-0.2); Bilirubin Total 0.4 mg/dL (0.2-1.0); Glucose Level 85 mg/dL (74-106); Magnesium 1.8 mg/dL (1.8-2.4); NT PRO-BNP 1081 pg/mL (<125); Protein, Total 7.2 g/dL (6.4-8.2); Sodium Level 135 mmol/L (136-145); Troponin (Emerg Dept Use Only) < 0.02 ng/mL (0.0-0.045)
[2019-04-30 18:09] LABS: Anisocytosis 1+; Blood Morphology Comment NOTED (NOT SEEN); Hypochromasia 1+; Macrocytosis 1+; Platelet Estimate INCR; Platelets, Giant NOTED; Polychromasia SLIGHT; Urine White Blood Cell Casts OK
[2019-04-30] MEDS ORDERED: METHYLPREDNISOLONE 125 MG INJ ONE (18:20)
[2019-04-30] MEDS ORDERED: IPRATROPIUM BROM 0.5MG/2.5ML ONE (18:20)
[2019-04-30] MEDS ORDERED: ALBUTEROL 2.5 MG/3 ML NEB SOL ONE (18:20)
[2019-04-30] MEDS ORDERED: FAMOTIDINE 20 MG/2 ML VIAL IV ONE (18:20)
[2019-04-30] MEDS ORDERED: Levofloxacin500mg IV 500 MG/100 ML BAG IV ONE (18:20)
--- NOTE | 2019-04-30 19:00 | RAD REPORT ---
EXAM DESCRIPTION: RAD - Chest Single View - 04/30/2019 5:51 pm CLINICAL HISTORY: Abdominal pain, vomiting, hypoglycemia, history of stage IV renal carcinoma COMPARISON: None. TECHNIQUE: AP portable chest image was obtained 1749 hours . FINDINGS: Lungs are slightly underinflated. Interstitial and alveolar opacities are present in the m id and lower lung moscoso. Focal masslike consolidation in the lateral aspect of each base could be in fectious or neoplastic given the provided history. There is widening in the mediastinum that could be abnormal lymphadenopathy as well. Heart size within normal limits for portable imaging. Trachea is midline. No measurable pleural effu beba and no pneumothorax. No acute bony abnormality seen. No acute aortic findings suspected. IMPRESSION: Interstitial and alveolar opacification in the mid and lower lung moscoso. In the acute clinical setting this is most likely bilateral lung base pneumonia. However, given the m etastatic history, metastatic lung parenchymal masses are not excluded. Widened mediastinum is present. In a patient with known malignancy, mediastinal lymphadenopathy canno t be excluded.
[2019-04-30] MEDS ORDERED: KCL 20 MEQ/100 mL IVPB 20 MEQ/100 ML BAG IV ONE (20:06)
[2019-04-30] MEDS ORDERED: NA CHLORIDE 0.9% 500 ML ONE (20:06)
--- NOTE | 2019-04-30 20:39 | RAD REPORT ---
EXAM DESCRIPTION: CT - Angio Aorta For Dissection - 04/30/2019 8:07 pm CLINICAL HISTORY: Hypoglycemia, chest pain, abdominal pain, history of metastatic renal carcinoma COMPARISON: Chest exam same date TECHNIQUE: Dynamically enhanced 3 mm thick images of the chest, abdomen, and upper pelvis were obtai dimitris during administration of approximately 150mL Isovue 370 IV contrast. Sagittal and coronal reconst ruction images were generated using MIP and reviewed. Exam utilizes a protocol to evaluate entire cou rse of the aorta. All CT scans are performed using dose optimization technique as appropriate and may include automated exposure control or mA/KV adjustment according to patient size. FINDINGS: Aorta is normal in diameter with no dissection or other acute aortic findings. Reconstruct ion images show no significant findings. Pulmonary arteries are normal as well. No cardiomegaly, pericardial thickening or pericardial effusio n. Lung parenchyma is grossly abnormal. There are innumerable round and oval metastatic lesions througho ut the lung parenchyma. Largest is 3.1 cm abutting the pleura in the lateral left chest. Minimal righ t pleural effusion is present. No pneumothorax. Mediastinum is grossly abnormal with numerous necrotic mediastinal and hilar metastatic lesions. A re trocaval-pretracheal mass measures 4.2 cm. A subcarinal necrotic mass is 4.1 cm. No chest wall mass. A 3.5 centimeter necrotic mass is present at the right base of the neck. Celiac, SMA and renal arteries show no suspicious findings. A 2.8 centimeter rim enhancing mass is present in the left lobe of the liver. No splenic abnormality seen. No primary pancreatic process identified. Gallbladder is normal size. There significant biliary tree dilatation without a duodenal or pancreatic mass seen. Duct stones can be occult. No suspicious right kidney finding. Left kidney is grossly abnormal. There is a large 12 centimeter heterogeneous enhancing mass projecting off the anterior margin of the kidney. Left renal vein thrombus is present near the junction with the IVC. Numerous small nodules are adjacent to the primary mass. There is a 3 .7 centimeter left adrenal mass with an adjacent 2.5 centimeter adrenal mass or lymph node. Numerous necrotic periaortic lymph nodes present on the left side at the renal vascular level. Numerous dilate d veins are present near the left kidney with dilation but no thrombus of an enlarged left gonadal ve in. Numerous dilated veins are present adjacent to the left side of the uterus. No acute GI process seen. No free air, free fluid or pneumatosis. No urinary bladder abnormality. Left hip prosthesis in place. Bony degenerative changes are present. No compression fracture or clear ly pathologic bone process identifiable. IMPRESSION: Negative CT scan of the aorta and pulmonary arterial tree. Widely metastatic primary renal cell carcinoma.There is a 12 centimeter left renal cell carcinoma wit h innumerable pulmonary, mediastinal and hilar metastatic masses as well is at least 1 metastatic jerilyn er lesion, left adrenal metastatic lesion and numerous periaortic/ pericaval metastatic lymph nodes. Left portal vein thrombus. Biliary tree dilatation with normal size gallbladder. A duct stone may be occult. No duodenal or panc reatic mass seen.
--- NOTE | 2019-04-30 21:07 | P.HP ---
Certification for Inpatient Patient admitted to: Observation With expected LOS: <2 Midnights Patient will require the following post-hospital care: Hospice Practitioner: I am a practitioner with admitting privileges, knowledge of patient current condition, hospital course, and medical plan of care. Services: Services provided to patient in accordance with Admission requirements found in Title 42 Section 412.3 of the Code of Federal Regulations Patient History Date of Service: 04/30/19 Primary Care Provider: Dr. Castro; [facility] Specialty Care Reason for admission: Fatigue, shortness of breath History of Present Illness: 63-year-old female presented to the emergency room with fatigue and shortness of breath. Patient with underlying diabetes mellitus type 2, tobacco history, recent diagnosis of stage IV renal cell carcinoma with metastasis to the lung. EMS evaluated patient at home. She was found to be hypoglycemic with a low blood sugar. Patient required D 10 with improvement. Patient also was found to be hypoxic with saturations around 80%. Patient has been using home oxygen. Patient was in process of following up with [facility] specialist tomorrow for bronchoscopy to definitively find out if she has underlying stage IV renal cell carcinoma with metastasis to the lung. Her specialists feel that she has this and have spoken to patient and son. They understand the diagnosis and prognosis as poor. In the ER patient evaluated. Patient placed on oxygen to maintain sats above 90 %. Hemoglobin 8.2, white count 7.4. Sodium 135, potassium 3.0. CT scan was negative for pulmonary embolism. Widely metastatic primary renal cell carcinoma identified. 12 cm left renal cell carcinoma with innumerable pulmonary , mediastinal and hilar metastatic mass is identified. With at least 1 metastatic liver lesion, left adrenal metastatic lesion and numerous Periaortic/ Pericaval metastatic lymph nodes noted. Left portal vein thrombus noted as well. The ER tried to transfer patient to her specialist at [facility]. Unfortunately no beds were available. Transfer to [facility] was denied due to level of care needed. [facility] also lacked beds. I was to asked to evaluate the patient further and admit locally. When I saw the patient she appeared stable. Son at bedside. Patient understands her prognosis as poor. Patient recently started on medication for diabetes. Allergies Penicillins Allergy (Unverified 08/14/17 18:04) Unknown Home medications list reviewed: Yes - Past Medical/Surgical History Diabetic: Yes -: Diabetes mellitus type 2, non-insulin dependent -: Stage IV renal cell carcinoma with mets to liver/lung -: Tobacco history -: COPD -: GERD -: Anemia of chronic disease -: Femur fracture repair -: Appendectomy Psychosocial/ Personal History: Patient lives with her son. She is a . She has 3 children - Family History Family History: Reviewed- Non-Contributory - Social History Smoking Status: Former smoker Counseled patient to stop smoking for: less than 10 minutes Smoking therapy provided: Yes Patient receptive to therapy: Yes Alcohol use: No CD- Drugs: No Caffeine use: Yes Place of Residence: Home Review of Systems General: Weakness, Malaise, As per HPI Eyes: Unremarkable ENT: Unremarkable Respiratory: Shortness of Breath, SOB with Excertion, As per HPI Cardiovascular: Unremarkable Gastrointestinal: Nausea, Diarrhea, As per HPI Genitourinary: Unremarkable Musculoskeletal: Unremarkable Integumentary: Unremarkable Neurological: Unremarkable Lymphatics: Unremarkable Physical Examination - Physical Exam General: Alert, In no apparent distress, Oriented x3, Cooperative HEENT: Atraumatic, Normocephalic, PERRLA, Other (Dry mucous membranes) Neck: Supple, No Thyromegaly Respiratory: Expiratory wheezes (Bilateral), Inspiratory wheezes (Bilateral) Cardiovascular: Normal pulses, Regular rate/rhythm Gastrointestinal: Normal bowel sounds, Soft and benign, Non-distended, No tenderness, No masses, No rebound, No guarding, Ascites Integumentary: No erythema, No warmth, No cyanosis, Tenderness/swelling (Mild pitting edema to the lower extremities) Neurological: Normal speech, Normal strength at 5/5 x4 extr, Normal tone, Normal affect - Studies Laboratory Data (last 24 hrs) 04/30/19 17:29: PT 18.1 H, INR 1.56 04/30/19 17:29: WBC 7.4, Hgb 8.2 L, Hct 27.5 L, Plt Count 682 H Assessment and Plan - Plan Impression: Hypoglycemia likely related to medication and poor oral intake with underlying diabetes mellitus type 2, non insulin dependent Stage IV renal cell carcinoma with metastasis to the lung/liver/lymph nodes Shortness of breath likely related to COPD exacerbation History of tobacco use GERD Anemia of chronic disease Plan: Hypoglycemia likely related to medication and poor oral intake with underlying diabetes mellitus type 2, non insulin dependent: Patient will be admitted for further evaluation. Will discontinue diabetic medication including metformin and glipizide. Due to her poor oral intake hypoglycemia likely occurred with medication. Will recommend to discontinue medication at discharge. Will provide DVT prophylaxis-Lovenox. Continue with plan below with hospice at discharge. Stage IV renal cell carcinoma with metastasis to the lung/liver/lymph nodes: Patient was denied transfer to [facility] and [facility] due to lack of beds. [facility] denied transfer due to level of care required. Patient admitted to further monitor and address current issues. Patient with advanced stage IV renal cell carcinoma with metastasis to the lung, liver and lymph nodes. This is extensive. This is a recent diagnosis. I discussed with patient and family at length concerning her diagnosis and prognosis. Prognosis is poor. She is likely to decline over the next 6 months or sooner. Patient understands this disease is incurable. She is likely not a good candidate for treatment or radiation. Would recommend against bronchoscopy which was to be done tomorrow for definitive diagnosis. This likely would complicate her situation. Advanced directives address in detail. Patient wishes to be do not resuscitate. Hospice was addressed in detail with the patient and son. Both agree. Patient will be admitted and stabilized. Patient will be discharge with hospice at home likely as early as tomorrow. Will consult social work professor to help in this process. Likely discharge as early as tomorrow if hospice can be set up and arranged. Patient will require home oxygen, hospital bed and medication for pain/agitation. Shortness of breath likely related to COPD exacerbation: Will start low-dose prednisone. Will provide COPD medication including Brovana, albuterol and Atrovent. Will maintain sats above 90%. Patient will require home oxygen at discharge. History of tobacco use: Patient no longer smokes. Will monitor this closely. GERD: Will provide medication. Anemia of chronic disease: This will be monitored closely. Likely from renal cell carcinoma. Discharge Plan: Home (With hospice) Plan to discharge in: 24 Hours - Advance Directives Does patient have a Living Will: No Does patient have a Durable POA for Healthcare: No - Code Status/Comfort Care Code Status Assessed: Yes (Patient is do not resuscitate. Patient to pursue hospice at home) Time Spent Managing Pts Care (In Minutes): 55
[2019-04-30] MEDS ORDERED: IPRATROPIUM BROM 0.5MG/2.5ML NEB PRN (22:09)
[2019-04-30] MEDS: INSULIN -REGULAR HUMAN 50 UNIT/0.5 ML ML SQ SCH (22:09)
[2019-04-30] MEDS ORDERED: TRAMADOL HCL 50 MG TAB PO PRN (22:09)
[2019-04-30] MEDS ORDERED: ALBUTEROL 2.5 MG/3 ML NEB SOL NEB PRN (22:09)
[2019-04-30] MEDS: FAMOTIDINE 20 MG TAB PO SCH (22:09)
[2019-04-30] MEDS ORDERED: ACETAMINOPHEN 500 MG TAB PO PRN (22:09)
[2019-04-30] MEDS ORDERED: ONDANSETRON 4 MG/2 ML VIAL IV PRN (22:09)
[2019-04-30] MEDS ORDERED: NS KCL 20MEQ 20 MEQ/1,000 ML BAG IV SCH (22:30)
[2019-04-30] MEDS ORDERED: NS KCL 20MEQ 1,000 ML IV ONE (22:35)
[2019-04-30] MEDS: predniSONE 10 MG TAB PO SCH (23:15)
[2019-04-30 23:52] LABS: Urine Appearance CLEAR; Urine Bilirubin NEGATIVE (NEG); Urine Blood TRACE (NEG); Urine Color YELLOW; Urine Glucose NEGATIVE (NEG); Urine Protein TRACE (NEG); Urine Specific Gravity >=1.030 (1.005-1.030)
[2019-04-30 23:53] LABS: Urine Microscopic Reflex ORDER UMIC
[2019-05-01 00:48] LABS: Urine Bacteria <20 /HPF (<20); Urine Culture Reflex Order NOT NEEDED; Urine RBC <5 /HPF (NONE SEEN)
[2019-05-01] MEDS: HYDROCODONE/APAP 7.5/325 MG TAB PO PRN ×2 (05:03→11:47)
[2019-05-01] MEDS: BENZONATATE 100 MG CAP PO PRN ×2 (05:06→11:47)
[2019-05-01 06:13] LABS: Absolute Lymphocytes (CBC) 0.4 K/uL (0.7-4.9); Basophils % 0.1 % (0-1.3); Hematocrit 26.5 % (36.0-45.0); MPV 6.2 fL (7.6-11.3); RBC Red Blood Cell Count 3.54 M/uL (3.86-4.86)
[2019-05-01 06:28] LABS: BUN Blood Urea Nitrogen 9 mg/dL (7-18); Bicarbonate 33 mmol/L (21-32); Glucose Level 196 mg/dL (74-106); Magnesium 1.9 mg/dL (1.8-2.4); Potassium 3.9 mmol/L (3.5-5.1); Sodium Level 135 mmol/L (136-145)
[2019-05-01 07:14] LABS: Anisocytosis 1+; Blood Morphology Comment NOTED (NOT SEEN); Platelet Estimate INCR; Urine White Blood Cell Casts OK
[2019-05-01 07:15] LABS: Stomatocytes 1+
[2019-05-01] MEDS ORDERED: ARFORMOTEROL TARTRATE 15 MCG/2 ML VIAL.NEB NEB SCH (08:00)
[2019-05-01] MEDS: INSULIN -REGULAR HUMAN 50 UNIT/0.5 ML ML SQ SCH ×2 (08:31→11:52)
[2019-05-01] MEDS: FAMOTIDINE 20 MG TAB PO SCH (08:32)
[2019-05-01] MEDS: predniSONE 10 MG TAB PO SCH (08:33)
[2019-05-01] MEDS ORDERED: ENOXAPARIN 40 MG/0.4 ML SQ SCH (09:00)
--- NOTE | 2019-05-01 10:37 | EKG ---
Test Date: 2019-04-30 Test Time: 17:19:15 Rat Breeder: MILTON MEASUREMENT RESULTS: Intervals: Rate: 110 ME: 126 QRSD: 90 QT: 328 QTc: 443 [place]: P: 52 ME: 126 QRS: 83 T: 48 INTERPRETIVE STATEMENTS: Sinus tachycardia Nonspecific ST and T wave abnormality Abnormal ECG No previous ECG available for comparison Electronically Signed On 05-01-19 10:35:37 CDT by Elpidio Murray
--- NOTE | 2019-05-02 00:34 | DS ---
Date of Discharge: 05/01/2019 Discharge Diagnoses: 1.Hypoglycemia related to poor oral intake and diabetes medications. 2.Stage IV renal carcinoma with metastases to the lung, liver, and lymph nodes. 3.Shortness of breath related to chronic obstructive pulmonary disease exacerbation. 4.Acute chronic obstructive pulmonary disease exacerbation. 5.History of nicotine dependence. 6.Gastroesophageal reflux disease without esophagitis. 7.Anemia of chronic disease. 8.Diabetes mellitus type 2, noninsulin requiring with hypoglycemia. 9.Hypokalemia. 10.Obesity. Hospital Course: The patient is a 63-year-old female who comes in to the hospital with shortness of breath, fatigue with a recent diagnoses of stage IV renal carcinoma with metastases to the lung. Her evaluation showed O2 saturations of 80%. Her blood sugar was also low. She was started on D10W wit h improvement. Patient also had a low potassium. CT scan was done, which was negative for PE, howev er, showed widely metastatic primary renal cell carcinoma, 12 cm left renal cell carcinoma with innum erable pulmonary mediastinal hilar metastatic masses, at least 1 metastatic liver lesion, 1 left adre nal metastatic lesion, and numerous periaortic, pericaval metastatic lymph nodes noted. Left portal vein thrombus was noted as well. Patient was attempted to be transferred to [facility], [facility], and [facility], however, no beds were available and [facility] denied transfer due to level of care. Therefore, she was treated at our facility. Family opted for hospice care. Therefore, [facility] was contacted. Patient was set up to [facility] and was discharged with a guarded prognosis. [facility] ient was initiated on care and comfort measures with hospice. Physical Examination: General: Awake, alert, and oriented x3. Does not appear to be in any acute distress. Does complain of some pain. CV: S1, S2. No murmurs. Respiratory: Moving air well bilaterally. No wheezing. Gastrointestinal: Abdomen is soft, nontender, nondistended. Positive bowel sounds. Extremities: No clubbing, cyanosis. Trace pedal edema. Neurologic: Nonfocal. SA/MODL Voice ID: [id number] Report ID: [id number]
== END 2019-05-01 15:11 | disposition hospice, home (50) ==
LOC: ER 17:09 → ERHOLD 21:04 → 2ND 22:04
PROVIDERS: ADMIT Family Medicine; ATTEND Family Medicine
DX: E11.649 Type 2 diabetes mellitus with hypoglycemia without coma (principal); C64.2 Malignant neoplasm of left kidney, except renal pelvis; C78.00 Secondary malignant neoplasm of unspecified lung; C77.8 Secondary and unspecified malignant neoplasm of lymph nodes of multiple regions; C78.2 Secondary malignant neoplasm of pleura; I81 Portal vein thrombosis; J44.1 Chronic obstructive pulmonary disease with (acute) exacerbation; K21.9 Gastro-esophageal reflux disease without esophagitis; D63.1 Anemia in chronic kidney disease; D64.9 Anemia, unspecified; E87.6 Hypokalemia; R00.0 Tachycardia, unspecified; R94.31 Abnormal electrocardiogram [ECG] [EKG]; E66.9 Obesity, unspecified; Z68.31 Body mass index [BMI] 31.0-31.9, adult; Z79.84 Long term (current) use of oral hypoglycemic drugs; Z87.891 Personal history of nicotine dependence; Z99.81 Dependence on supplemental oxygen
CPT/HCPCS: 36415; 71045; 71275; 74175; 80048; 80076; 81003; 81015; 82962; 83735; 83880; 84484; 85025; 85610; 87040; 93005; 94640; 96365; 96366; 96375; 99285; G0378; J1650; J2930; J7512; J7605; Q9967